=== PATIENT | male | born 1960 | race Caucasian/White ===

== ENCOUNTER 2020-07-26 12:52 | Outpatient (REF) | payer MEDICARE, MEDICAID, SELFPAY ==
[2020-07-26 14:33] LABS: Hematocrit 42.7 % (42-52); Hemoglobin 15.1 g/dl (14.0-18.0); Mean Corpuscular HGB Conc 35.4 g/dl (31.0-36.0); Mean Corpuscular Hemoglobin 33.3 pg (27.0-33.0); Mean Corpuscular Volume 94.1 fL (80-98); Mean Platelet Volume 10.6 fL (9.4-12.4); Platelet Count 148 X10*3/uL (160-400); Red Blood Count 4.54 X10*6/uL (4.60-5.80); Red Cell Distribution Width 11.9 % (11.0-16.0); White Blood Count 4.7 X10*3/uL (4.8-10.8)
[2020-07-26 14:55] LABS: Alanine Aminotransferase 29 U/L (0-40); Albumin Level 4.4 g/dL (3.5-5.0); Alkaline Phosphatase 109 U/L (39-117); Anion Gap 12 (12-20); Aspartate Amino Transferase 34 U/L (5-37); Bilirubin Direct 0.2 mg/dL (0.0-0.5); Bilirubin Total 0.6 mg/dL (0.0-1.0); Blood Urea Nitrogen 13 mg/dL (9-16); Calcium 8.6 mg/dL (8.4-10.2); Carbon Dioxide 24 mmol/L (22-29); Chloride 106 mmol/L (96-108); Cholesterol 131 mg/dL; Estimated Glomerular Filt Rate > 60; Glucose Fasting 96 mg/dL (60-99); HDL Cholesterol 39 mg/dL; LDL Cholesterol Calculated 77 mg/dl; Magnesium 2.2 mg/dL (1.6-2.6); Sodium 138 mmol/L (135-145); Total Protein 6.5 g/dL (6.5-8.0); Triglycerides 76 mg/dL
[2020-07-26 15:18] LABS: TSH reflex Free T4 1.15 uIU/mL (0.32-4.0)
== END 2020-07-26 12:53 | disposition home or self-care (01) ==
LOC: HO.WFDLDS 12:52
PROVIDERS: Visit Provider Hospitalist
DX: Z00.00 Encounter for general adult medical examination without abnormal findings (principal); M62.838 Other muscle spasm
CPT/HCPCS: 36415; 80048; 80061; 80076; 83735; 84443; 85027

== ENCOUNTER → 2020-10-04 13:34 | Outpatient (BNVA) | payer MEDICARE, MEDICAID, SELFPAY | PROVIDERS: PCP Hospitalist; Referring Provider Hospitalist; Visit Provider Nurse Practitioner | DX: K59.00 Constipation, unspecified (principal); R14.0 Abdominal distension (gaseous) | CPT/HCPCS: 99202 ==

== ENCOUNTER → 2020-12-20 14:11 | Outpatient (BNVA) | payer MEDICARE, MEDICAID, SELFPAY | PROVIDERS: PCP Family Medicine; Visit Provider Nurse Practitioner | DX: K59.00 Constipation, unspecified (principal); R14.0 Abdominal distension (gaseous) | CPT/HCPCS: Q3014 ==

== ENCOUNTER 2021-01-30 19:04 | Emergency (ER) | payer MEDICARE, MEDICAID, SELFPAY ==
[2021-01-30 20:08] VITALS: BP 128/75; PULSE 68; RESP 18; TEMP 36.6; O2SAT 98; BMI 24.7
[2021-01-30 20:22] LABS: Appearance Urine CLEAR; Color Urine STRAW; Glucose Urine UA NEG (NEG); Leukocyte Esterase Urine NEG (NEG); Nitrite Urine NEG (NEG); Specific Gravity - Urine <= 1.005 (1.005-1.025); Urine Blood NEG (NEG); Urine Ketones NEG (NEG); Urine Protein NEG (NEG-TRACE)
[2021-01-30 21:28] LABS: MANUAL DIFF FLAG NO
[2021-01-30 21:30] LABS: Basophils Percent Auto 0.3 % (0-2); Eosinophils Absolute Auto 0.1 X10*3/uL (0.0-0.4); Eosinophils Percent Auto 1.6 % (0-4); Hemoglobin 14.7 g/dl (14.0-18.0); Imm Gran Abs Auto 0.01 X10*3/uL (0.00-0.03); Imm Gran Pct Auto 0.2 % (0.0-0.4); Lymphocytes Percent Auto 32.5 % (20-40); Mean Corpuscular Hemoglobin 33.5 pg (27.0-33.0); Mean Corpuscular Volume 95.7 fL (80-98); Mean Platelet Volume 10.2 fL (9.4-12.4); Monocytes Absolute Auto 0.6 X10*3/uL (0.1-1.2); Neutrophils Absolute Auto 3.4 X10*3/uL (2.0-8.3); Neutrophils Percent Auto 56.4 % (45-73); Platelet Count 157 X10*3/uL (160-400); Red Blood Count 4.39 X10*6/uL (4.60-5.80); Red Cell Distribution Width 12.4 % (11.0-16.0); White Blood Count 6.1 X10*3/uL (4.8-10.8)
[2021-01-30 21:46] LABS: Anion Gap 13 (12-20); Blood Urea Nitrogen 16 mg/dL (9-16); Calcium 9.5 mg/dL (8.4-10.2); Carbon Dioxide 25 mmol/L (22-29); Chloride 106 mmol/L (96-108); Creatinine Clr Calc Pharmacy 91.8; Estimated Glomerular Filt Rate > 60; Glucose Random 97 mg/dL (60-115); Potassium 4.3 mmol/L (3.3-5.1); Sodium 140 mmol/L (135-145)
[2021-01-30 22:06] VITALS: BP 129/79; PULSE 60; RESP 14; O2SAT 97
--- NOTE | 2021-01-30 22:24 | ED_ITS ---
HPI - General Adult General Chief complaint: Headache Stated complaint: Multiple complaints Time Seen by Provider: 01/30/21 22:23 Source: patient Mode of arrival: ambulatory Limitations: no limitations History of Present Illness HPI narrative: patient with both abdominal discomfort with belching and flatulance and headache. He is anxious that he has been poisoned by his coffee cup and bad M&M peanuts. He has occaisonal diarrhea. Patient is concerned that he is dying from being poisoned and wants to be checked out. Concerned that radioactive waves in his cell phone is affecting his brain. Onset (ago): year(s) Radiation: non-radiation Severity: mild Pain Consistency: intermittent Associated symptoms: denies other symptoms Related Data Home Medications Medication Instructions Recorded Confirmed aspirin 81 mg tablet,delayed 81 mg PO DAILY 07/16/20 01/21/21 release Previous Rx's Medication Instructions Recorded betamethasone valerate 0.1 % 1 appl TOPICAL BID PRN #45 g 09/27/20 topical cream atorvastatin 80 mg tablet 80 mg PO DAILY #90 tab 01/03/21 sulfamethoxazole 800 1 tab PO Q12H 5 Days #10 tab 01/21/21 mg-trimethoprim 160 mg tablet (Bactrim DS) Allergies Allergy/AdvReac Type Severity Reaction Status Date / Time Penicillins [PCN] Allergy Severe HIVES Verified 01/21/21 10:50 nutmeg oil (Myristica seed Allergy Intermediate hives Verified 01/21/21 10:50 oil) perfume Allergy Mild Unknown Verified 01/21/21 10:50 barley Allergy Intermediate rash, hives Uncoded 12/20/20 14:12 food dyes Allergy Intermediate rash, blue Uncoded 12/20/20 14:12 dyes on meds, drinks Review of Systems Constitutional: Constitutional: Reports no additional constitutional complaints Eyes: Eyes: Reports no additional eye complaints ENT: Denies dizziness Cardiovascular: Cardiovascular: Reports no additional cardiovascular complaints Respiratory: Respiratory: Reports as per HPI Gastrointestinal: Gastrointestinal: Reports no additional gastrointestinal complaints Musculoskeletal: Musculoskeletal: Reports no additional musculoskeletal complaints Integumentary/Breasts: Skin/Breast: Denies rash Neurologic: Reports system reviewed and no additional complaints, except as documented, Denies dizziness and Denies Sensory deficit (Neuro) Psychiatric: Psychiatric: Denies anxiety PMFSH Past Medical History Medical History Abdominal aneurysm, ruptured Broken back Spinal stenosis at L4-L5 level Surgical History History of esophagogastroduodenoscopy (EGD) Hx of colonoscopy Stented coronary artery Social History Social History Housing: Apartment Alcohol intake: former Patient Tobacco Use Status: Never used Tobacco Advance Directives: No Advance Directives Information Provided: No Current occupational status: retired Physical Exam Vital Signs: Vital Signs: Last Vital Signs Temp 98 F 01/30/21 20:08 Pulse 60 01/30/21 22:06 Resp 14 01/30/21 22:06 BP 129/79 01/30/21 22:06 Pulse Ox 97 01/30/21 22:06 Body Mass Index 24.7 Const: General: healthy appearing Nutritional Appearance: average body habitus Orientation/consciousness: oriented to person and patient oriented x3 Limitations: no limitations HENMT: Head: Yes normal to inspection Ears: external ears normal General nose exam: Normal external nose present Mouth: Normal oral and palatal mucosa present and oropharynx normal Throat: Yes posterior oropharynx normal Eyes: General: appearance normal, both eyes and all related structures Neck: Other: supple Neck: Yes normal visual inspection Chest: Chest palpation & inspection: normal inspection of the chest Resp: Auscultation: clear to auscultation bilaterally Cardio: Jugular venous distension: no JVD Rate: regular rate Rhythm: regular rhythm Heart sounds: S1 normal heart sound present and S2 normal heart sound present GI: Inspection: Yes normal to inspection Palpation (GI): Soft to palpation, nontender and No hepatosplenomegaly present Auscultation: normal bowel sounds : General: Yes no CVA tenderness Back/Spine/Pelvis: Back: no CVA tenderness Skin: General skin exam: no rashes or lesions noted Neuro: General: oriented to person and patient oriented x3 Cranial nerves: Yes CN's II-XII intact bilaterally Motor exam (neuro): 5/5 motor strength present throughout Sensory Exam: No Sensory deficit (Neuro) Extrem: General: Yes normal to inspection Psych: Appearance: grossly normal Course Reevaluation(s) Reevaluation #1: no evidence of poisoning or any end organ injury will dc home Time: 22:31 Medical Decision Making Lab Data Result diagrams: 01/30/21 21:23 01/30/21 21:23 Labs: Lab Results 01/30/21 01/30/21 01/30/21 Range/Units 20:16 21:23 21:23 WBC 6.1 (4.8-10.8) X10*3/uL RBC 4.39 L (4.60-5.80) X10*6/uL Hgb 14.7 (14.0-18.0) g/dl Hct 42.0 (42-52) % MCV 95.7 (80-98) fL MCH 33.5 H (27.0-33.0) pg MCHC 35.0 (31.0-36.0) g/dl RDW 12.4 (11.0-16.0) % Plt Count 157 L (160-400) X10*3/uL MPV 10.2 (9.4-12.4) fL Immature Gran % (Auto) 0.2 (0.0-0.4) % Neut % (Auto) 56.4 (45-73) % Lymph % (Auto) 32.5 (20-40) % Tyrrell % (Auto) 9.0 (2-11) % Eos % (Auto) 1.6 (0-4) % Baso % (Auto) 0.3 (0-2) % Lymph # (Auto) 2.0 (1.2-4.9) X10*3/uL Tyrrell # (Auto) 0.6 (0.1-1.2) X10*3/uL Eos # (Auto) 0.1 (0.0-0.4) X10*3/uL Baso # (Auto) 0.0 (0.0-0.2) X10*3/uL Abs Immat Gran (auto) 0.01 (0.00-0.03) X10*3/uL Absolute Neuts (auto) 3.4 (2.0-8.3) X10*3/uL Absolute Nucleated RBC 0.000 (0.0-0.012) X10*3/uL Nucleated RBC % (auto) 0.0 (0.0-0.2) /100WBC Sodium 140 (135-145) mmol/L Potassium 4.3 (3.3-5.1) mmol/L Chloride 106 (96-108) mmol/L Carbon Dioxide 25 (22-29) mmol/L Anion Gap 13 (12-20) BUN 16 (9-16) mg/dL Creatinine 0.95 (0.5-1.4) mg/dL Estim Creat Clear Calc 91.8 Estimated GFR > 60 Random Glucose 97 (60-115) mg/dL Calcium 9.5 D (8.4-10.2) mg/dL Urine Color STRAW Urine Appearance CLEAR Urine pH 6.0 (5.0-8.0) Ur Specific [place] <= 1.005 (1.005-1.025) Urine Protein NEG (NEG-TRACE) MG/DL Urine Glucose (UA) NEG (NEG) MG/DL Urine Ketones NEG (NEG) MG/DL Urine Blood NEG (NEG) Urine Nitrite NEG (NEG) Ur Leukocyte Esterase NEG (NEG) Discharge Plan Discharge Clinical Impression: Observation and evaluation for suspected conditions not found Patient Disposition: Home, Self-Care Additional Instructions: Throw out coffee cup, drink plenty of fluids Prescriptions: No Action betamethasone valerate 0.1 % cream 1 appl topical BID PRN (Reason: skin irritation) Qty: 45 RF: 0 atorvastatin 80 mg tablet 80 mg PO DAILY Qty: 90 RF: 0 aspirin 81 mg tablet,delayed release (DR/EC) 81 mg PO DAILY RF: 0 sulfamethoxazole-trimethoprim [Bactrim DS] 800-160 mg tablet 1 tab PO Q12H 5 Days Qty: 10 RF: 0 Referrals: April Jarrell, [employer]PECTOR [Primary Care Provider] - 1 week
== END 2021-01-30 22:46 | disposition home or self-care (01) ==
PROVIDERS: Emergency Provider Emergency Medicine; PCP Hospitalist
DX: R51.9 Headache, unspecified (principal); R10.9 Unspecified abdominal pain; Z79.899 Other long term (current) drug therapy; Z87.891 Personal history of nicotine dependence
CPT/HCPCS: 36415; 80048; 81003; 85025; 99283

== ENCOUNTER 2021-06-24 14:00 | Outpatient (RCR) | payer MEDICARE, MEDICAID, SELFPAY ==
--- NOTE | 2021-04-28 08:30 | MHC.PT.EP ---
[facility] [place] Office [place] [facility] [place] Office [address] Bhavna Carney [address] [phone] F: [phone] F: [phone] F: [phone] F: [phone] Physical Therapy Plan of Care Date of Evaluation: Date of Surgery: Diagnosis: PT eval and treat; M54.12 Radiculopathy Cervical Region script Dr. Luis Enrique Bazzi signed on 04/16/21 Assessment: Pt is a RHD 60 y/o male with PMH significant for cardiac stenting, abdominal aneurysm, ruptured spinal stenosis at L4-L5 level, history of esophagogastroduodenoscopy (EGD)Hx of colonoscopy who was referred to PT for treatment of L cervical radiculopathy onset of sx which began approximately five weeks ago following a walkin in appt referred to PT by Dr. Bazzi. Pt presents with signs and sx consistent with cervical radiculopathy impacting L periscap, L elbow, hand, and L constant, wrist numbness/tingling. Pt presents with noted mental health concerns, noted to exhibit agitation and perseverance on previous past medical history and childhood experiences. He was able to be redirected and calmed when presented with encouragement to complete deep breathing in effort to relax and redirect his attention, however he did demonstrate physical outburst when expressing his history and used language which was violent and inappropriate. He presents to office carrying Bio-freeze patch expressing positive response to use inquiring help with application. He was advised to save this patch for a later date as he was treated with use of topical Bio-freeze application in the clinic expressing (+) response. He was educated regarding application/safety/use and given sample to take for home use. Pt was initiated in trial of gentle cervical manual traction with some short centralization verbalized from height of hand with initial trial. He was also guided through passive, relaxed pendulums, initiated in scapular retraction with arms by side, and encouraged to perform periodic deep breathing in effort to calm himself. He would be best served in therapy of a proposed attendance of 2x/week x 4 weeks however pt expressing food insecurities (mentions actively in co-op program with delivery from pantry) causing him additional stress and lack of self transportation (reliant on PT-[facility] for transport to and from appointments). Pt was educated re: goals of treatment, findings of evaluation, and indications for treatment. Therapist wants to ensure referring provider and PCP are aware of mental health concern, when patient was briefly speaking to PT he stated I have OCD and I work myself up but then later states he has never received any formal diagnosis or treatments for such. He would benefit from screening for mental health support/treatment. 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 He demonstrated limited formal evaluation in regards to ROM/strength specifics and was initiated in treatment ronit in effort to calm his agitation levels. Frequency and Duration: The patient will be seen 1-2x/week Short Term Goals: 1. Centralize L UE to height of sx L shoulder. 2. Reduce L UE sx to height of shoulder. 3. Initiate self management task lift for HEP instruction. 4. Demonstrate proper carryover, use application, and safety with use of Biofreeze. Record Pressman Goals: 1. I HEP. 2. Centralize presence of L UE sx to height of C/S. 3. Strength L UE grossly all planes to resemble uninvolved extremity. Treatment Plan: Modalities to reduce pain, spasms and effusion. Manual therapy to restore motion and function. Therapeutic exercise to improve strength and flexibility. Neuromuscular re-education for posture and balance. Therapeutic activities to return to functional activities of daily living. Electronically signed by: Merna Hsu, PT, DPT Please sign and return to therapist. Thank you for your referral.
== END 2021-11-21 13:44 | disposition home or self-care (01) ==
LOC: HO.PTWFD 14:00
PROVIDERS: PCP Hospitalist; Visit Provider Family Medicine
DX: M54.12 Radiculopathy, cervical region (principal)
CPT/HCPCS: 97012; 97110; 97140; 97163; 97535

== ENCOUNTER → 2022-02-12 14:55 | Outpatient (BNVA) | payer MEDICARE, SELFPAY | PROVIDERS: PCP Internal Medicine; Visit Provider Internal Medicine Gastroenterology | DX: K59.00 Constipation, unspecified (principal); R14.0 Abdominal distension (gaseous); K57.30 Diverticulosis of large intestine without perforation or abscess without bleeding; K21.9 Gastro-esophageal reflux disease without esophagitis; I71.30 Abdominal aortic aneurysm, ruptured, unspecified; M48.07 Spinal stenosis, lumbosacral region; Z95.5 Presence of coronary angioplasty implant and graft | CPT/HCPCS: 99212 ==

== ENCOUNTER 2022-06-24 16:53 | Emergency (ER) | payer MEDICARE, SELFPAY ==
[2022-06-24 18:19] VITALS: PULSE 63; RESP 18; TEMP 36.6; O2SAT 98; BMI 25.0
--- NOTE | 2022-06-24 18:19 | ED.LOWEXIN ---
HPI - Extremity Injury (Lower) General Chief Complaint: Extremity Injury, Lower Stated Complaint: quest l leg dvt Related Data Home Medications Medication Instructions Recorded Confirmed aspirin 81 mg tablet,delayed 81 mg PO DAILY 07/16/20 02/12/22 release Previous Rx's Medication Instructions Recorded atorvastatin 80 mg tablet 80 mg PO DAILY #90 tabs 07/28/21 clotrimazole-betamethasone 1 1 appl topical BID 2 weeks #15 02/03/22 %-0.05 % topical cream grams polyethylene glycol 3350 17 17 g PO DAILY PRN laxative effect 02/12/22 gram/dose oral powder (Miralax) 60 days #238 grams Allergies Allergy/AdvReac Type Severity Reaction Status Date / Time Penicillins [PCN] Allergy Severe HIVES Verified 02/12/22 15:06 nutmeg oil (Myristica seed Allergy Intermediate hives Verified 02/12/22 15:06 oil) perfume Allergy Mild Unknown Verified 02/12/22 15:06 barley Allergy Intermediate rash, hives Uncoded 02/03/22 13:20 food dyes Allergy Intermediate rash, blue Uncoded 02/03/22 13:20 dyes on meds, drinks PMFSH Past Medical History Medical History Abdominal aneurysm, ruptured Broken back Spinal stenosis at L4-L5 level Surgical History History of esophagogastroduodenoscopy (EGD) Hx of colonoscopy Stented coronary artery Family History Family History Sister Lung cancer Mother Blind Alcoholic Father No problems noted. Social History Social History Housing: Apartment Alcohol intake: current Alcohol intake frequency: holidays/special occasions only Alcohol type: wine Patient Tobacco Use Status: Never used Tobacco e-Cigarette/Vaping Use: Never Used Second Hand Smoke Exposure: Yes Advance Directives: No Advance Directives Information Provided: No service: Yes Current occupational status: retired Cognitive needs: No Hearing needs: No Vision needs: No Physical Exam Vital Signs: Vital Signs: Last Vital Signs Temp 98 F 06/24/22 18:19 Pulse 63 06/24/22 18:19 Resp 18 06/24/22 18:19 Pulse Ox 98 06/24/22 18:19 BMI result Body Mass Index 25.0 Course Course Course Narrative: This is an RME: Additional HPI, ROS, PE not included below will be deferred to primary provider. Patient is a 61-year-old woman presents to the emergency department for evaluation of left lower extremity concern. Patient reports long haul symptoms from COVID-19. States last week into the weekend, reports that the left ankle and left foot was bruised diffusely, this was atraumatic. He reports that he also had spots of bruising just inferior to the ankle. This overall resolved over the past few days. However, he has a lump that he is able to palpate to the distal medial lower leg just above the ankle, and this area is tender. He contacted his primary care office, and they advised him to come to the emergency department to rule out DVT. Denies fevers, chills, chest pain, shortness of breath, dizziness, numbness or tingling. PE: 2+ DP/PT pulse bilaterally, no erythema, swelling, calf tenderness. No respiratory distress, no tachypnea, hypoxia, or tachycardia. Plan: D-dimer to evaluate for DVT Medical Decision Making Lab Data Labs: Lab Results 06/24/22 Range/Units 18:54 D-Dimer High Sensitivty 162 NG/ML Discharge Plan Discharge Clinical Impression: Acute leg pain Patient Disposition: Elopement Prescriptions: No Action atorvastatin 80 mg tablet 80 mg PO DAILY Qty: 90 3RF aspirin 81 mg tablet,delayed release (DR/EC) 81 mg PO DAILY clotrimazole-betamethasone 1-0.05 % cream 1 appl topical BID 14 Days Qty: 15 1RF polyethylene glycol 3350 [Miralax] 17 gram/dose powder 17 g PO DAILY PRN (Reason: laxative effect) 60 Days Qty: 238 3RF Interventions: ED Discharge Assessment Last Done: 06/24/22 20:37 Discharge Date/Time: 06/24/22 20:54
[2022-06-24 19:08] LABS: D Dimer High Sensitivity 162 NG/ML
== END 2022-06-24 20:54 | disposition left against medical advice (07) ==
PROVIDERS: Student in an Organized Health Care Education/Training Program; Emergency Provider Emergency Medicine; PCP Internal Medicine
DX: M79.662 Pain in left lower leg (principal); Z95.5 Presence of coronary angioplasty implant and graft; Z87.820 Personal history of traumatic brain injury
CPT/HCPCS: 36415; 85379; 99282; 99283

== ENCOUNTER 2022-09-25 11:01 | Outpatient (REF) | payer MEDICARE, SELFPAY ==
[2022-09-25 12:57] LABS: Alanine Aminotransferase 30 U/L (0-40); Albumin Level 4.9 g/dL (3.5-5.0); Alkaline Phosphatase 101 U/L (39-117); Anion Gap 13 (12-20); Aspartate Amino Transferase 42 U/L (5-37); Bilirubin Total 1.1 mg/dL (0.0-1.0); Blood Urea Nitrogen 16 mg/dL (9-16); Calcium 9.7 mg/dL (8.4-10.2); Carbon Dioxide 26 mmol/L (22-29); Chloride 107 mmol/L (96-108); Cholesterol 139 mg/dL; Estimated Glomerular Filt Rate > 60; Glucose Fasting 90 mg/dL (60-99); Glucose Random 89 mg/dL (60-115); HDL Cholesterol 43 mg/dL; LDL Cholesterol Calculated 77 mg/dl; Magnesium 2.2 mg/dL (1.6-2.6); Potassium 4.5 mmol/L (3.3-5.1); Sodium 141 mmol/L (135-145); Total Protein 6.9 g/dL (6.5-8.0); Triglycerides 96 mg/dL
[2022-09-25 13:28] LABS: Folate 16.4 ng/mL (> or = 4.0); Vitamin B12 683 pg/mL (200-900); Vitamin D 25-OH Total 42.6 ng/mL (>30)
== END 2022-09-25 11:02 | disposition home or self-care (01) ==
LOC: HO.LAB 11:01
PROVIDERS: PCP Internal Medicine; Visit Provider Nurse Practitioner Family
DX: Z13.21 Encounter for screening for nutritional disorder (principal); M62.838 Other muscle spasm; E78.5 Hyperlipidemia, unspecified; Z95.5 Presence of coronary angioplasty implant and graft; E55.9 Vitamin D deficiency, unspecified
CPT/HCPCS: 36415; 80053; 80061; 82306; 82607; 82746; 83735; 84100

== ENCOUNTER → 2022-10-22 13:53 | Outpatient (BNVA) | payer MEDICARE, SELFPAY | PROVIDERS: PCP Internal Medicine; Visit Provider Internal Medicine Gastroenterology | DX: K57.30 Diverticulosis of large intestine without perforation or abscess without bleeding (principal); K21.9 Gastro-esophageal reflux disease without esophagitis; K59.00 Constipation, unspecified; R14.0 Abdominal distension (gaseous); R10.32 Left lower quadrant pain | CPT/HCPCS: 99212 ==

== ENCOUNTER 2023-04-14 09:59 | Outpatient (AMB) | payer MEDICARE, SELFPAY ==
[2023-04-14 10:03] VITALS: BP 120/70; PULSE 64; O2SAT 99; BMI 26.9
--- NOTE | 2023-04-14 10:03 | A.OFFPC_ITS ---
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 Accompanied by: Self / Same As Patient Allergies Penicillins [PCN] Allergy (Severe, Verified 04/14/23 10:31) HIVES nutmeg oil (Myristica seed oil) Allergy (Intermediate, Verified 04/14/23 10:31) hives perfume Allergy (Mild, Verified 04/14/23 10:31) Unknown barley Allergy (Intermediate, Uncoded 04/14/23 10:04) rash, hives food dyes Allergy (Intermediate, Uncoded 04/14/23 10:04) rash, blue dyes on meds, drinks Medication List - Last Reconciled 04/14/23 by Jose Alfredo Rao PA-C aspirin 81 mg PO DAILY atorvastatin 80 mg PO DAILY cyclobenzaprine 10 mg PO BEDTIME PRN 10 days polyethylene glycol 3350 (Miralax) 17 grams PO DAILY PRN 60 days psyllium husk (Fiber (psyllium husk)) 0.52 grams PO BID PRN 60 days Tobacco use date assessed: 09/01/22 Dental Screening Dental Screen Date: 04/14/23 Did you have a dental visit in the last 12 months?: No Did you have a dental problem in the last 6 months where you did not have access to dental care?: No Was dental information given to patient?: Yes HPI possible sinusitis HPI Details Patient is a 62-year-old male here today for problem visit. This is the 1st time I am meeting this 62-year-old male with a past medical history significant for hyperlipidemia, GERD and coronary artery disease. He reports last week having a stuffy nose and blowing his nose and noted greenish brownish sputum. This has resolved with conservative treatment. He is interested in starting in nasal spray for his sinusitis. [facility] Medical History Abdominal aneurysm, ruptured Spinal stenosis at L4-L5 level Broken back Surgical History History of esophagogastroduodenoscopy (EGD) Hx of colonoscopy Stented coronary artery Family History Sister Lung cancer Mother Blind Alcoholic Father No problems noted. Social History Housing: Apartment Alcohol intake: current Alcohol intake frequency: holidays/special occasions only Alcohol type: wine Patient Tobacco Use Status: Never used Tobacco e-Cigarette/Vaping Use: Never Used Second Hand Smoke Exposure: Yes service: Yes Current occupational status: retired Cognitive needs: No Hearing needs: No Vision needs: No Questionnaire Thrive Questionnaire Date Thrive assessed: 09/01/22 DOREEN-7 AMB Questionnaire DOREEN-7 Date DOREEN - 7 assessed: 09/25/22 Source: Developed by Drs. Olman Jama, Theresa Reyes, José Luis Cottrell and colleagues, with an educational ciro from [employer]. Review of Systems Const Denies headache(s) Eyes Denies loss of vision ENT Denies vertigo, Denies dizziness, Denies headache(s) and Denies sore throat Card Denies chest pain, Denies leg edema and Denies lightheadedness Resp Denies cough, Denies hemoptysis and Denies wheezing GI Denies abdominal pain, Denies melena, Denies constipation, Denies diarrhea and Denies vomiting Denies dysuria, Denies urinary frequency and Denies urinary urgency Musc Denies arthralgias, Denies joint swelling, Denies numbness and Denies tingling Neuro Denies Abnormal speech present, Denies behavioral changes, Denies vertigo, Denies dizziness, Denies headache(s), Denies loss of vision, Denies memory loss, Denies numbness and Denies tingling Psych Denies anxiety, Denies behavioral changes, Denies depression, Denies memory loss and Denies panic attacks Get/Lymph Denies easy bleeding and Denies easy bruising Aller/Immun Denies wheezing Physical exam (Primary Care) Vital Signs: Last Vital Signs Pulse 64 04/14/23 10:03 BP 120/70 04/14/23 10:03 Pulse Ox 99 04/14/23 10:03 Oxygen Delivery Method Room Air 04/14/23 10:03 BMI result Body Mass Index 26.9 Tobacco/Smoking Status: Tobacco use Status Tobacco use date assessed 09/01/22 04/14/23 10:04 Patient Tobacco Use Status Never used Tobacco 04/14/23 10:04 e-Cigarette/Vaping Use Never Used 04/14/23 10:04 Thrive Assessment: Date of Thrive Assessment Date Thrive assessed 09/01/22 04/14/23 10:04 Const General: healthy appearing, no acute distress, alert and awake Nutritional Appearance: well nourished Orientation/consciousness: oriented to person, oriented to place and oriented to time HENMT Ears: TM's normal bilaterally General nose exam: Normal nasal mucous membranes and turbinates present Eyes Conjunctivae: conjunctivae normal Sclerae: sclerae normal Pupils: Equal, round and reactive pupils present Neck Neck: Yes no lymphadenopathy and Yes no JVD Thyroid: Thyroid normal Carotids: no bruits Resp Effort & Inspection: normal respiratory effort and not tachypneic Auscultation: no crackles, no rales, no rhonchi and no wheezes Cardio Rate: regular rate Rhythm: regular rhythm Heart sounds: no murmurs and normal S1 and S2 GI Palpation (GI): Soft to palpation, nontender, no hepatomegaly and no splenomegaly Auscultation: normal bowel sounds Skin General skin exam: no rashes or lesions noted and dry skin Neuro General: oriented to person, oriented to place and oriented to time Cranial nerves: Yes Equal, round and reactive pupils present Speech: No Abnormal speech present Gait exam (Neuro): Normal gait present Motor exam (neuro): no tremor noted Extrem Right upper extremity: full ROM Left upper extremity: full ROM Right lower extremity: full ROM; no edema Left lower extremity: full ROM; no edema Psych Mental Status: mental status grossly normal Speech and movement: Normal speech and movement present Affect: normal affect Attitude: cooperative Thought process: Normal thought process present Assessment and Plan Assessment & Plan (1) Sinusitis: Code(s): J32.9 - Chronic sinusitis, unspecified Qualifiers: Chronicity: subacute Sinusitis location: frontal Qualified Code(s): J01.10 - Acute frontal sinusitis, unspecified Plan: Will supply patient with Flonase nasal spray for his signs and symptoms of rhinitis and sinusitis. Medications: New fluticasone propionate 50 mcg/actuation administer into each nostril 1 spray intranasal BID 30 days 16 grams 1RF J01.10 - Acute frontal sinusitis, unspecified Coding Level of Care Code Est Pt Level 3 (38677) Diagnoses Subacute frontal sinusitis J01.10 Chronicity: subacute Sinusitis location: frontal
== END 2023-04-14 10:50 | disposition home or self-care (01) ==
PROVIDERS: PCP Internal Medicine; Visit Provider Physician Assistant
DX: J01.10 Acute frontal sinusitis, unspecified (principal)
CPT/HCPCS: 99213

== ENCOUNTER 2023-06-22 15:04 | Outpatient (AMB) | payer MEDICARE, SELFPAY ==
--- NOTE | 2023-06-22 15:12 | MHC.PC.OV ---
Vital Signs 06/22/23 15:19 Height 6 ft Weight 201 lb BMI 27.3 BP 122/80 Blood Pressure Location Lt brachial Position Sitting Intake Visit Reasons: Annual exam Intake Note: Patient here for a physical exam Car Icer Required: No Accompanied by: Self / Same As Patient Allergies Penicillins [PCN] Allergy (Severe, Verified 06/22/23 15:43) HIVES nutmeg oil (Myristica seed oil) Allergy (Intermediate, Verified 06/22/23 15:43) hives perfume Allergy (Mild, Verified 06/22/23 15:43) Unknown barley Allergy (Intermediate, Uncoded 06/22/23 15:43) rash, hives food dyes Allergy (Intermediate, Uncoded 06/22/23 15:43) rash, blue dyes on meds, drinks Medication List - Last Reconciled 06/22/23 by Claudia Carpenter MD aspirin 81 mg PO DAILY atorvastatin 80 mg PO DAILY clotrimazole 1% 1 appl topical BID 4 weeks fluticasone propionate 50 mcg/actuation 1 spray intranasal BID 30 days peg 400-propylene glycol (PF) 0.4-0.3 % (Systane Hydration (PF)) 1 drp ophthalmic (eye) BID-QID PRN 30 days polyethylene glycol 3350 (Miralax) 17 grams PO DAILY PRN 60 days psyllium husk (Fiber (psyllium husk)) 0.52 grams PO BID PRN 60 days Tobacco use date assessed: 06/22/23 Dental Screening Dental Screen Date: 06/22/23 Did you have a dental visit in the last 12 months?: No Did you have a dental problem in the last 6 months where you did not have access to dental care?: No Was dental information given to patient?: Yes HPI HPI Comments History of Present Illness Details This is a 62-year-old male that comes for his physical exam. Had Cologuard in 2021 that was negative. Next Cologuard should be 2024. No chest pain or shortness of breath. [facility] Medical History (Updated 06/22/23 @ 15:55 by Claudia Carpenter MD) Traumatic brain injury Abdominal aneurysm, ruptured Spinal stenosis at L4-L5 level Broken back Surgical History History of esophagogastroduodenoscopy (EGD) Hx of colonoscopy Stented coronary artery Family History Sister Lung cancer Mother Blind Alcoholic Father No problems noted. Social History Housing: Apartment Alcohol intake: current Alcohol intake frequency: holidays/special occasions only Alcohol type: wine Patient Tobacco Use Status: Never used Tobacco e-Cigarette/Vaping Use: Never Used Second Hand Smoke Exposure: Yes service: Yes Current occupational status: retired Cognitive needs: No Hearing needs: No Vision needs: No Questionnaire PHQ-9 Over the last 2 weeks, how often have you been bothered by any of the following problems? 1. Little interest or pleasure in doing things: not at all 2. Feeling down, depressed, or hopeless: several days 3. Trouble falling or staying asleep, or sleeping too much: not at all 4. Feeling tired or having little energy: not at all 5. Poor appetite or overeating: not at all 6. Feeling bad about yourself - or that you are a failure or have let yourself or your family down: not at all 7. Trouble concentrating on things, such as reading the newspaper or watching television: not at all 8. Moving or speaking so slowly that other people could have noticed. Or the opposite - being so fidgety or restless that you have been moving around a lot more than usual: not at all 9. Thoughts that you would be better off or of hurting yourself in some way: not at all Total score: 1 Depression Screening Interpretation: Negative Depression Screening Done: Yes 78005 - PHQ-9 Billing: Yes Source: Developed by Drs. Olman Jama, Theresa Reyes, José Luis Cottrell and colleagues, with an educational ciro from [employer]. Thrive Questionnaire Date Thrive assessed: 06/22/23 I am a: Patient What is your living situation today?: I have a steady place to live Within the past 12 months, did the food you bought not last and you didn't have the money to get more?: Never true Within the past 12 months, did you worry whether your food would run out before you got money to buy more?: Never true Do you have trouble paying for medicines?: No Do you have trouble getting transportation to medical appointments?: No Do you have trouble paying your heating and electricity bill?: No Do you have trouble taking care of your child, family member or friend?: No Do you have trouble with day-to-day activities such as bathing, preparing meals, shopping, managing finances, etc.?: No Are you currently unemployed and looking for a job?: No Are you interested in more education?: No Please select the resources that you would like help with: None Currently or been in a relationship where the following occur: no concerns reported THRIVE Score: 0 AUDIT C Alcohol Use Questionnaire (AUDIT-C) 1. How often do you have a drink containing alcohol?: Never Total Score: 0 DOREEN-7 AMB Questionnaire DOREEN-7 Date DOREEN - 7 assessed: 06/22/23 Feeling nervous, anxious, or on edge: 1 = Several days Not being able to stop or control worryin = Not at all Worrying too much about different things: 0 = Not at all Trouble relaxin = Not at all Being so restless that it is hard to sit still: 0 = Not at all Becoming easily annoyed or irritable: 0 = Not at all Feeling afraid as if something awful might happen: 0 = Not at all Total DOREEN-7 score (0-4 normal; 5-9 mild; 10-14 moderate; 15-21 severe): 1 Source: Developed by Drs. Olman Jama, Theresa Reyes, José Luis Cottrell and colleagues, with an educational ciro from [employer]. DOREEN-7 Assessment Billing DOREEN-7 Assessment Tool: DOREEN-7 Assessment 90890 Review of Systems Const All systems reviewed & are unremarkable except as noted in HPI and below Eyes Reports no additional complaints, Denies change in vision and Denies other visual disturbances Card Denies chest pain at rest, Denies chest pain with activity, Denies edema, Denies irregular heart rhythm, Denies claudication, Denies dyspnea, Denies dyspnea on exertion, Denies orthopnea, Denies paroxysmal nocturnal dyspnea and Denies slow heart rate Resp Denies cough, Denies dyspnea and Denies dyspnea on exertion GI Denies abdominal pain, Denies change in bowel habits, Denies excessive flatus, Denies nausea and Denies vomiting Denies urinary hesitancy, Denies urinary incontinence and Denies urinary urgency Musc Denies abnormal gait, Denies atrophy, Denies deformity and Denies limited range of motion Skin/Breast Denies bleeding lesions, Denies changing lesions and Denies rash Neuro Denies abnormal gait and Denies lack of coordination Physical exam (Primary Care) Vital Signs: Last Vital Signs BP 122/80 06/22/23 15:19 BMI result Body Mass Index 27.3 Tobacco/Smoking Status: Tobacco use Status Tobacco use date assessed 06/22/23 06/22/23 15:26 Patient Tobacco Use Status Never used Tobacco 06/22/23 15:13 e-Cigarette/Vaping Use Never Used 06/22/23 15:13 PHQ-9: PHQ-9 Score PHQ-9: Total score 1 06/22/23 15:26 Depression Screening Interpretation: Negative Thrive Assessment: Date of Thrive Assessment Date Thrive assessed 06/22/23 06/22/23 15:26 Currently or been in a relationship where the following occur: no concerns reported Const Orientation/consciousness: patient oriented x3 HENMT Head: Yes normal to inspection, Yes normocephalic and Yes atraumatic Ears: external ears normal Eyes General: appearance normal, both eyes and all related structures Eyelids: Yes eyelids normal Conjunctivae: conjunctivae normal Neck Neck: Yes normal visual inspection and Yes supple Resp Effort & Inspection: normal respiratory effort Auscultation: clear to auscultation bilaterally Cardio Jugular venous distension: no JVD Rate: regular rate Rhythm: regular rhythm Heart sounds: S1 normal heart sound present and S2 normal heart sound present GI Inspection: Yes normal to inspection Palpation (GI): Soft to palpation and nontender Auscultation: normal bowel sounds Skin General skin exam: no rashes or lesions noted Neuro General: patient oriented x3 and no focal motor deficits Extrem General: Yes full ROM Assessment and Plan Assessment & Plan (1) Physical exam: Code(s): Z00.00 - Encounter for general adult medical examination without abnormal findings Plan: Repeat in a year. Orders: Orders Lipid Panel Today E78.5 - Hyperlipidemia, unspecified Comprehensive [place]. Panel Fast Today Z00.00 - Encounter for general adult medical examination without abnormal findings Medications: Refilled fluticasone propionate 50 mcg/actuation administer into each nostril 1 spray intranasal BID 30 days 16 grams 1RF J01.10 - Acute frontal sinusitis, unspecified clotrimazole 1% 1 appl topical BID 4 weeks 15 grams 1RF Coding Level of Care Code Est Pt Prev Care 40-64y(10781) Diagnoses Physical exam Z00.00 Additional Codes DOREEN-7 Assessment Billing - DOREEN-7 Assessment Tool: DOREEN-7 Assessment 40355 ([id number]) Time Spent (min) 33
[2023-06-22 15:19] VITALS: BP 122/80; BMI 27.3
== END 2023-06-22 15:58 | disposition home or self-care (01) ==
PROVIDERS: Visit Provider Internal Medicine
DX: Z00.00 Encounter for general adult medical examination without abnormal findings (principal)
CPT/HCPCS: 99396

== ENCOUNTER 2023-10-06 15:52 | Outpatient (AMB) | payer MEDICARE, SELFPAY ==
[2023-10-06 15:54] VITALS: BP 120/82; BMI 25.9
--- NOTE | 2023-10-06 15:54 | A.OFFPC_ITS ---
Vital Signs 10/06/23 15:54 Height 6 ft Weight 191 lb BMI 25.9 BP 120/82 Blood Pressure Location Lt brachial Position Sitting Intake Visit Reasons: Left heel swollen Intake Note: Patient here c/o left heel pain Affiliate Marketing Coordinator Required: No Accompanied by: Self / Same As Patient Allergies Penicillins [PCN] Allergy (Severe, Verified 10/06/23 16:10) HIVES nutmeg oil (Myristica seed oil) Allergy (Intermediate, Verified 10/06/23 16:10) hives perfume Allergy (Mild, Verified 10/06/23 16:10) Unknown barley Allergy (Intermediate, Uncoded 10/06/23 16:10) rash, hives food dyes Allergy (Intermediate, Uncoded 10/06/23 16:10) rash, blue dyes on meds, drinks Medication List - Last Reconciled 10/06/23 by Claudia Carpenter MD aspirin 81 mg PO DAILY atorvastatin 80 mg PO DAILY clotrimazole 1% 1 appl topical BID 4 weeks fluticasone propionate 50 mcg/actuation 1 spray intranasal BID 30 days peg 400-propylene glycol (PF) 0.4-0.3 % (Systane Hydration (PF)) 1 drp ophthalmic (eye) BID-QID PRN 30 days polyethylene glycol 3350 (Miralax) 17 grams PO DAILY PRN 60 days psyllium husk (Fiber (psyllium husk)) 0.52 grams PO BID PRN 60 days Tobacco use date assessed: 06/22/23 Dental Screening Dental Screen Date: 06/22/23 HPI HPI Comments History of Present Illness Details This is a 63-year-old male with pure hypercholesterolemia, constipation and onychomycosis that complains of pain in feet more prominent in the heel aggravated by walking that started about 2 months ago. He has history of plantar fascitis in the past. Denies previous trauma. Has full active range of motion and no deformity. Some callus around the heel. Would like to be referred to Podiatry. On statins for elevated cholesterol. Constipation stable with MiraLax as needed. Has onychomycosis and declines terbinafine because it can cause liver injury. [facility] Medical History (Updated 10/06/23 @ 17:59 by Claudia Carpenter MD) Traumatic brain injury Abdominal aneurysm, ruptured Spinal stenosis at L4-L5 level Broken back Surgical History History of esophagogastroduodenoscopy (EGD) Hx of colonoscopy Stented coronary artery Family History Sister Lung cancer Mother Blind Alcoholic Father No problems noted. Social History Housing: Apartment Alcohol intake: current Alcohol intake frequency: holidays/special occasions only Alcohol type: wine Patient Tobacco Use Status: Never used Tobacco e-Cigarette/Vaping Use: Never Used Second Hand Smoke Exposure: Yes service: Yes Current occupational status: retired Cognitive needs: No Hearing needs: No Vision needs: No Questionnaire Thrive Questionnaire Date Thrive assessed: 06/22/23 DOREEN-7 AMB Questionnaire DOREEN-7 Date DOREEN - 7 assessed: 06/22/23 Source: Developed by Drs. Olman Jama, Theresa Reyes, José Luis Cottrell and colleagues, with an educational ciro from [employer]. Review of Systems Const All systems reviewed & are unremarkable except as noted in HPI and below Card Denies chest pain at rest, Denies chest pain with activity, Denies edema, Denies irregular heart rhythm, Denies claudication, Denies dyspnea, Denies dyspnea on exertion, Denies orthopnea, Denies paroxysmal nocturnal dyspnea and Denies slow heart rate Resp Denies cough, Denies dyspnea and Denies dyspnea on exertion Physical exam (Primary Care) Vital Signs: Last Vital Signs BP 120/82 10/06/23 15:54 BMI result Body Mass Index 25.9 Tobacco/Smoking Status: Tobacco use Status Tobacco use date assessed 06/22/23 10/06/23 16:00 Patient Tobacco Use Status Never used Tobacco 10/06/23 16:00 e-Cigarette/Vaping Use Never Used 10/06/23 16:00 Thrive Assessment: Date of Thrive Assessment Date Thrive assessed 06/22/23 10/06/23 16:00 Resp Effort & Inspection: normal respiratory effort Auscultation: clear to auscultation bilaterally Cardio Jugular venous distension: no JVD Rate: regular rate Rhythm: regular rhythm Heart sounds: S1 normal heart sound present and S2 normal heart sound present Extrem General: Yes full ROM Assessment and Plan Assessment & Plan (1) Pain in both feet: Code(s): M79.671 - Pain in right foot; M79.672 - Pain in left foot Plan: Referred to Podiatry. (2) Pure hypercholesterolemia: Code(s): E78.00 - Pure hypercholesterolemia, unspecified Plan: Continue statins. (3) Constipation: Comment: Tries to have a BM daily or every other day by drinking grape or pomegranate juice or hot water. Denies recent diarrhea, black stools. Stools are dark related to diet. Intermittent rectal bleeding from hemorrhoids. Prescribed Miralax for constipation Code(s): K59.00 - Constipation, unspecified Plan: Continue MiraLax as needed. (4) Onychomycosis: Code(s): B35.1 - Tinea unguium Plan: Referred to Podiatry. Orders: Orders XR foot LT 2V Today M79.672 - Pain in left foot XR foot RT 2V Today M79.671 - Pain in right foot Referrals Podiatry Referral M79.671 - Pain in right foot, M79.672 - Pain in left foot Coding Level of Care Code Est Pt Level 4 (27301) Complex EM visit Add On G2211 Diagnoses Pain in both feet M79.671; M79.672 Pure hypercholesterolemia E78.00 Constipation K59.00 Onychomycosis B35.1 Time Spent (min) 22
== END 2023-10-06 16:23 | disposition home or self-care (01) ==
PROVIDERS: PCP Internal Medicine; Visit Provider Internal Medicine
DX: M79.671 Pain in right foot (principal); M79.672 Pain in left foot; E78.00 Pure hypercholesterolemia, unspecified; K59.00 Constipation, unspecified; B35.1 Tinea unguium
CPT/HCPCS: 99214; G2211

== ENCOUNTER 2023-10-13 13:42 | Outpatient (REF) | payer MEDICARE, SELFPAY ==
--- NOTE | ~2023-10-13 | XR_ITS ---
EXAMINATION: XR BILATERAL FEET CLINICAL INFORMATION: Pain in bilateral feet. COMPARISON: None available. TECHNIQUE: 3 views of each foot FINDINGS: RIGHT FOOT: Small plantar and posterior calcaneal spurs. Moderate degenerative changes in the first metatarsophalangeal joint with joint space narrowing and hypertrophic change. Cortical step-off at the medial proximal shaft of the right third toe proximal phalanx could be related to prior trauma and/or degenerative change. Moderate degenerative changes in the right second and third metacarpophalangeal joints. Small cortical defect at the lateral base of the second digit proximal phalanx with small adjacent calcific/ossific density. Small ossific/calcific density lateral to the base of the third toe proximal phalanx. LEFT FOOT: Small dorsal and plantar calcaneal spurs. Moderate degenerative changes in the first metatarsophalangeal joint with joint space narrowing and hypertrophic change. Mild flattening of the second metatarsal head may represent Freiberg's infraction. Mild degenerative changes in the first tarsometatarsal joint. XR/XR foot RT 2V IMPRESSION: 1. Moderate degenerative changes bilateral first metatarsophalangeal joints. 2. Cortical step-off at the medial proximal shaft of the right third toe proximal phalanx could be related to prior trauma and/or degenerative change. 3. Small cortical defect at the lateral base of the right second digit proximal phalanx with small adjacent calcific/ossific density. Small ossific/calcific density lateral to the base of the right third toe proximal phalanx. 4. Mild flattening of the left second metatarsal head may represent Freiberg's infraction. 5. Correlation with clinical exam recommended to determine further management including possible additional imaging.
--- NOTE | ~2023-10-13 | XR_ITS ---
EXAMINATION: XR BILATERAL FEET CLINICAL INFORMATION: Pain in bilateral feet. COMPARISON: None available. TECHNIQUE: 3 views of each foot FINDINGS: RIGHT FOOT: Small plantar and posterior calcaneal spurs. Moderate degenerative changes in the first metatarsophalangeal joint with joint space narrowing and hypertrophic change. Cortical step-off at the medial proximal shaft of the right third toe proximal phalanx could be related to prior trauma and/or degenerative change. Moderate degenerative changes in the right second and third metacarpophalangeal joints. Small cortical defect at the lateral base of the second digit proximal phalanx with small adjacent calcific/ossific density. Small ossific/calcific density lateral to the base of the third toe proximal phalanx. LEFT FOOT: Small dorsal and plantar calcaneal spurs. Moderate degenerative changes in the first metatarsophalangeal joint with joint space narrowing and hypertrophic change. Mild flattening of the second metatarsal head may represent Freiberg's infraction. Mild degenerative changes in the first tarsometatarsal joint. XR/XR foot LT 2V IMPRESSION: 1. Moderate degenerative changes bilateral first metatarsophalangeal joints. 2. Cortical step-off at the medial proximal shaft of the right third toe proximal phalanx could be related to prior trauma and/or degenerative change. 3. Small cortical defect at the lateral base of the right second digit proximal phalanx with small adjacent calcific/ossific density. Small ossific/calcific density lateral to the base of the right third toe proximal phalanx. 4. Mild flattening of the left second metatarsal head may represent Freiberg's infraction. 5. Correlation with clinical exam recommended to determine further management including possible additional imaging.
== END 2023-10-13 13:43 | disposition home or self-care (01) ==
LOC: HO.XRAY 13:42
PROVIDERS: PCP Internal Medicine; Visit Provider Internal Medicine
DX: M79.672 Pain in left foot (principal); M79.671 Pain in right foot
CPT/HCPCS: 73620

== ENCOUNTER 2024-03-09 13:02 | Outpatient (AMB) | payer MEDICARE, SELFPAY ==
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
[2024-03-09 13:18] VITALS: BP 122/75; PULSE 69; BMI 25.2
== END 2024-05-17 13:35 | disposition home or self-care (01) ==
LOC: HO.HGI 13:03
PROVIDERS: PCP Internal Medicine; Visit Provider Internal Medicine Gastroenterology
DX: R10.32 Left lower quadrant pain (principal); K59.00 Constipation, unspecified; K21.9 Gastro-esophageal reflux disease without esophagitis; K57.30 Diverticulosis of large intestine without perforation or abscess without bleeding
CPT/HCPCS: 99499

== ENCOUNTER → 2024-03-09 13:02 | Outpatient (BNVA) | payer MEDICARE, SELFPAY | PROVIDERS: PCP Internal Medicine; Visit Provider Internal Medicine Gastroenterology ==

== ENCOUNTER 2024-03-13 13:08 | Outpatient (AMB) | payer MEDICARE, SELFPAY ==
[2024-03-13 13:19] VITALS: BMI 27.3
--- NOTE | 2024-03-13 13:19 | MHC.AMNUTRGE ---
VS Expanded 03/13/24 13:19 03/13/24 13:28 Height 6 ft 6 ft Weight 201 lb 8.04 oz 202 lb BMI 27.3 27.4 Intake Visit Reasons: Pure hypercholesterolemia/CONFIRMED Allergies Penicillins [PCN] Allergy (Severe, Verified 03/09/24 13:10) HIVES nutmeg oil (Myristica seed oil) Allergy (Intermediate, Verified 03/09/24 13:10) hives perfume Allergy (Mild, Verified 03/09/24 13:10) Unknown barley Allergy (Intermediate, Uncoded 10/06/23 16:10) rash, hives food dyes Allergy (Intermediate, Uncoded 10/06/23 16:10) rash, blue dyes on meds, drinks Nutrition Presentation Details: Pt presents for MNT for hypercholesterolemia Today we will discuss basic low fat and higher fiber sources of foods Pt reports typically making home made meals, eats a variety of foods, reports having cooking skills , 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 BS Monitoring Most Recent Diabetes Results: Cholesterol 139 mg/dL 09/25/22 HDL Cholesterol 43 mg/dL 09/25/22 Triglycerides 96 mg/dL 09/25/22 Creatinine 1.00 mg/dL (0.5-1.4) 09/25/22 Blood Urea Nitrogen 16 mg/dL (9-16) 09/25/22 Sodium 141 mmol/L (135-145) 09/25/22 Potassium 4.5 mmol/L (3.3-5.1) 09/25/22 Chloride 107 mmol/L (96-108) 09/25/22 Carbon Dioxide 26 mmol/L (22-29) 09/25/22 Calcium 9.7 mg/dL (8.4-10.2) 09/25/22 AST 42 U/L (5-37) H 09/25/22 ALT 30 U/L (0-40) 09/25/22 Total Protein 6.9 g/dL (6.5-8.0) 09/25/22 Albumin 4.9 g/dL (3.5-5.0) 09/25/22 GBL-[id number]-Nf.Jeor Equation Height: 6 ft Weight: 202 lb Resting Metabolic Rate: 1758.30 Calculated Activity Level: Moderate Activity Calories Needed to Maintain Weight: 2725.37 Diagnosis Nutrition problem #1: food nutri know defi As related to (etiology) #1: diagnosis As evidenced by (sign/symptom) #1: knowledge deficit of diet COUNT INCLUDES THE [facility] Medical History Traumatic brain injury Abdominal aneurysm, ruptured Spinal stenosis at L4-L5 level Broken back Surgical History History of esophagogastroduodenoscopy (EGD) Hx of colonoscopy Stented coronary artery Family History Sister Lung cancer Mother Blind Alcoholic Father No problems noted. Social History Housing: Apartment Alcohol intake: current Alcohol intake frequency: holidays/special occasions only Alcohol type: wine Patient Tobacco Use Status: Never used Tobacco e-Cigarette/Vaping Use: Never Used Second Hand Smoke Exposure: Yes service: Yes Current occupational status: retired Cognitive needs: No Hearing needs: No Vision needs: No Assessment & Plan Assessment & Plan (1) Pure hypercholesterolemia: Code(s): E78.00 - Pure hypercholesterolemia, unspecified Category: Medical Plan: [id number] ( 04/02 ) Est kcal needs as per MSJ: 2700 (40% carb, 30% protein/fat) Est fluid needs as per 25-30 ml/d:2800 Est prot per day as per 1 g/kg bw: 92 Recommend fiber intake : 8-10 g per day and gradually increase to 25-28 g per day for women and 35-38 g for men or as tolerated Recommend sodium intake per day : less than 1500 mg less than 2000 mg Educated patient on: ( R = reviewed V = verbalizes understanding N/R = needs review N/A = not applicable Food sources of carbohydrate, adequate serving sizes and its role in various health conditions: R V N/R Differences between complex carbohydrates a simple carbohydrates, role of fiber in diet: R Lean protein sources of foods: R V NR Differences between types of fats and role in diet (mono on saturated fat fatty acids, saturated fatty acids, trans fats): R Food sources of sodium in salt and healthy modifications for heart health in kidney health: R V R/V Vitamins and minerals: R V N/R Healthy plate method concept: R Physical activity: Benefits a precaution: R V N/R Patient Instructions: include fish at least twice Continue choosing fiber rich foods (lentils, spinach, green beans carrots, fruits, whole grains Coding Level of Care Code Nutr Indiv Intake (11955) Diagnoses Pure hypercholesterolemia E78.00 Time Spent (min) 30
[2024-03-15 09:56] VITALS: BMI 27.4
== END 2024-03-13 13:50 | disposition home or self-care (01) ==
LOC: HO.ENCR 13:11
PROVIDERS: PCP Internal Medicine; Visit Provider Dietitian, Registered
DX: E78.00 Pure hypercholesterolemia, unspecified (principal)

== ENCOUNTER → 2024-03-13 13:08 | Outpatient (BNVA) | payer MEDICARE, SELFPAY | PROVIDERS: PCP Internal Medicine; Visit Provider Dietitian, Registered | DX: E78.00 Pure hypercholesterolemia, unspecified (principal) | CPT/HCPCS: 97802 ==

== ENCOUNTER → 2024-06-12 14:01 | Outpatient (BNVA) | payer MEDICARE, SELFPAY | PROVIDERS: PCP Internal Medicine; Visit Provider Dietitian, Registered | DX: E78.00 Pure hypercholesterolemia, unspecified (principal) | CPT/HCPCS: 97803 ==

== ENCOUNTER 2024-06-26 14:35 | Outpatient (AMB) | payer MEDICARE, SELFPAY ==
--- NOTE | 2024-06-26 14:38 | A.OFFPC_ITS ---
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 Accompanied by: Self / Same As Patient Allergies Penicillins [PCN] Allergy (Severe, Verified 06/26/24 14:48) HIVES nutmeg oil (Myristica seed oil) Allergy (Intermediate, Verified 06/26/24 14:48) hives perfume Allergy (Mild, Verified 06/26/24 14:48) Unknown barley Allergy (Intermediate, Uncoded 06/26/24 14:48) rash, hives food dyes Allergy (Intermediate, Uncoded 06/26/24 14:48) rash, blue dyes on meds, drinks Medication List - Last Reconciled 06/26/24 by Claudia Carpenter MD aspirin 81 mg PO DAILY atorvastatin 80 mg PO DAILY bisacodyl (Dulcolax (bisacodyl)) 20 mg (4 x 5 mg) PO ONCE 1 day clotrimazole 1% 1 appl topical BID 4 weeks fluticasone propionate 50 mcg/actuation 1 spray intranasal BID 30 days hydrocortisone 1% (Anti-Itch (hydrocortisone)) 1 appl topical TID PRN 2 weeks peg 400-propylene glycol (PF) 0.4-0.3 % (Systane Hydration (PF)) 1 drp ophthalmic (eye) BID-QID PRN 30 days polyethylene glycol 3350 (Miralax) 17 grams PO DAILY PRN 60 days polyethylene glycol 3350 (Miralax) 17 grams PO DAILY 1 day psyllium husk (Fiber (psyllium husk)) 0.52 grams PO BID PRN 60 days Tobacco use date assessed: 06/26/24 Dental Screening Dental Screen Date: 06/26/24 Did you have a dental visit in the last 12 months?: Yes Did you have a dental problem in the last 6 months where you did not have access to dental care?: No Was dental information given to patient?: Patient has dentist HPI HPI Comments History of Present Illness Details This is a 63-year-old male with traumatic brain injury and mild major depression that comes for his physical exam. Has erectile dysfunction and would like sildenafil to be prescribed. I will also refer him to Urology on test for testosterone. No chest pain or shortness on breath. Due to coronary artery disease follow with Cardiology once a year. Able to walk with no assistive device. Mild major depression with low PHQ-9 but declines any medication. [facility] Medical History (Updated 06/26/24 @ 15:07 by Claudia Carpenter MD) Traumatic brain injury Abdominal aneurysm, ruptured Spinal stenosis at L4-L5 level Broken back Surgical History History of esophagogastroduodenoscopy (EGD) Hx of colonoscopy Stented coronary artery Family History Sister Lung cancer Mother Blind Alcoholic Father No problems noted. Social History Housing: Apartment Alcohol intake: current Alcohol intake frequency: holidays/special occasions only Alcohol type: wine Patient Tobacco Use Status: Never used Tobacco e-Cigarette/Vaping Use: Never Used Second Hand Smoke Exposure: Yes service: Yes Current occupational status: retired Cognitive needs: No Hearing needs: No Vision needs: No Questionnaire PHQ-9 Over the last 2 weeks, how often have you been bothered by any of the following problems? 1. Little interest or pleasure in doing things: more than half the days 2. Feeling down, depressed, or hopeless: not at all 3. Trouble falling or staying asleep, or sleeping too much: more than half the days 4. Feeling tired or having little energy: several days 5. Poor appetite or overeating: more than half the days 6. Feeling bad about yourself - or that you are a failure or have let yourself or your family down: not at all 7. Trouble concentrating on things, such as reading the newspaper or watching television: not at all 8. Moving or speaking so slowly that other people could have noticed. Or the opposite - being so fidgety or restless that you have been moving around a lot more than usual: not at all 9. Thoughts that you would be better off or of hurting yourself in some way: not at all Total score: 7 Depression Screening Interpretation: Positive Depression Screening Follow-up: Existing condition and Follow-up Visit Requested Depression Screening Done: Yes 24391 - PHQ-9 Billing: Yes Source: Developed by Drs. Olman Jama, José Luis Hartley and colleagues, with an educational ciro from [employer]. Thrive Questionnaire Date Thrive assessed: 06/26/24 I am a: Patient What is your living situation today?: I have a steady place to live Within the past 12 months, did the food you bought not last and you didn't have the money to get more?: Sometimes True Within the past 12 months, did you worry whether your food would run out before you got money to buy more?: Sometimes True Do you have trouble paying for medicines?: No Do you have trouble getting transportation to medical appointments?: No Do you have trouble paying your heating and electricity bill?: No Do you have trouble taking care of your child, family member or friend?: No Do you have trouble with day-to-day activities such as bathing, preparing meals, shopping, managing finances, etc.?: No Are you currently unemployed and looking for a job?: No Are you interested in more education?: I choose not to answer this question Please select the resources that you would like help with: None Currently or been in a relationship where the following occur: No concerns reported THRIVE Score: 2 AUDIT C Alcohol Use Questionnaire (AUDIT-C) 1. How often do you have a drink containing alcohol?: Never Total Score: 0 Score Reviewed/Action Taken: No DOREEN-7 AMB Questionnaire DOREEN-7 Date DOREEN - 7 assessed: 06/26/24 Feeling nervous, anxious, or on edge: 0 = Not at all Not being able to stop or control worryin = Not at all Worrying too much about different things: 0 = Not at all Trouble relaxin = Not at all Being so restless that it is hard to sit still: 0 = Not at all Becoming easily annoyed or irritable: 0 = Not at all Feeling afraid as if something awful might happen: 0 = Not at all Total DOREEN-7 score (0-4 normal; 5-9 mild; 10-14 moderate; 15-21 severe): 0 Source: Developed by Drs. Olman Jama, José Luis Hartley and colleagues, with an educational ciro from [employer]. DOREEN-7 Assessment Billing DOREEN-7 Assessment Tool: DOREEN-7 Assessment 63919 Review of Systems Const All systems reviewed & are unremarkable except as noted in HPI and below Card Denies chest pain at rest, Denies chest pain with activity, Denies edema, Denies irregular heart rhythm, Denies claudication, Denies dyspnea, Denies dyspnea on exertion, Denies orthopnea, Denies paroxysmal nocturnal dyspnea and Denies slow heart rate Resp Denies cough, Denies dyspnea and Denies dyspnea on exertion GI Denies abdominal pain, Denies change in bowel habits, Denies excessive flatus, Denies nausea and Denies vomiting Denies urinary hesitancy, Denies urinary incontinence and Denies urinary urgency Neuro Denies lack of coordination Physical exam (Primary Care) Vital Signs: Last Vital Signs BP 112/72 06/26/24 14:39 BMI result Body Mass Index 26.7 Tobacco/Smoking Status: Tobacco use Status Tobacco use date assessed 06/22/23 10/06/23 16:00 Patient Tobacco Use Status Never used Tobacco 10/06/23 16:00 e-Cigarette/Vaping Use Never Used 10/06/23 16:00 Depression Screening Interpretation: Positive Depression Screening Follow-up: Existing condition and Follow-up Visit Requested Thrive Assessment: Date of Thrive Assessment Date Thrive assessed 06/22/23 10/06/23 16:00 Currently or been in a relationship where the following occur: No concerns reported [facility] Head: Yes normal to inspection, Yes normocephalic and Yes atraumatic Ears: external ears normal Eyes General: appearance normal, both eyes and all related structures Eyelids: Yes eyelids normal Conjunctivae: conjunctivae normal Neck Neck: Yes normal visual inspection and Yes supple Resp Effort & Inspection: normal respiratory effort Auscultation: clear to auscultation bilaterally Cardio Jugular venous distension: no JVD Rate: regular rate Rhythm: regular rhythm Heart sounds: S1 normal heart sound present and S2 normal heart sound present GI Inspection: Yes normal to inspection Palpation (GI): Soft to palpation and nontender Auscultation: normal bowel sounds Skin General skin exam: no rashes or lesions noted Neuro General: no focal motor deficits Extrem General: Yes full ROM Psych Appearance: grossly normal Coding Level of Care Code Est Pt Level 3 (67813) Est Pt Prev Care 40-64y(46230) Diagnoses Physical exam Z00.00 Erectile dysfunction N52.9 Mild major depression F32.0 Traumatic brain injury S06.9X9A Additional Codes PHQ-9 - 17391 - PHQ-9 Billing: Yes ([id number]) DOREEN-7 Assessment Billing - DOREEN-7 Assessment Tool: DOREEN-7 Assessment 55231 ([id number]) Time Spent (min) 31 Assessment & Plan Assessment & Plan (1) Physical exam: Code(s): Z00.00 - Encounter for general adult medical examination without abnormal findings Category: Medical (2) Erectile dysfunction: Code(s): N52.9 - Male erectile dysfunction, unspecified Category: Medical (3) Mild major depression: Code(s): F32.0 - Major depressive disorder, single episode, mild Category: Medical (4) Traumatic brain injury: Comment: 2016 Code(s): S06.9X9A - Unspecified intracranial injury with loss of consciousness of unspecified duration, initial encounter Category: Medical Plan Physical exam will be repeated in a year. Urology referral done to evaluate erectile dysfunction. Declines treatment for depression. Able to live alone despite traumatic brain injury. Orders: Orders Vitamin D 25-OH Total Today E55.9 - Vitamin D deficiency, unspecified Lipid Panel Today E78.5 - Hyperlipidemia, unspecified Comprehensive [place]. Panel Fast Today M25.511 - Pain in right shoulder Vitamin B12 and Folate Today E53.8 - Deficiency of other specified B group vitamins Testosterone, Free/Total Today N52.9 - Male erectile dysfunction, unspecified PSA,Total (Free>4and<10) Today R35.1 - Nocturia Referrals Urology Referral N52.9 - Male erectile dysfunction, unspecified Medications: Refilled clotrimazole 1% 1 appl topical BID 4 weeks 15 grams 3RF hydrocortisone 1% (Anti-Itch (hydrocortisone)) 1 appl topical TID 2 weeks PRN 28.4 grams 4RF skin irritation
[2024-06-26 14:39] VITALS: BP 112/72; BMI 26.7
== END 2024-06-26 15:07 | disposition home or self-care (01) ==
PROVIDERS: PCP Internal Medicine; Visit Provider Internal Medicine
DX: Z00.00 Encounter for general adult medical examination without abnormal findings (principal); N52.9 Male erectile dysfunction, unspecified; F32.0 Major depressive disorder, single episode, mild; S06.9X9A Unspecified intracranial injury with loss of consciousness of unspecified duration, initial encounter

== ENCOUNTER → 2024-06-26 14:35 | Outpatient (BNVA) | payer MEDICARE, SELFPAY | PROVIDERS: PCP Internal Medicine; Visit Provider Internal Medicine | DX: Z00.00 Encounter for general adult medical examination without abnormal findings (principal); N52.9 Male erectile dysfunction, unspecified; F32.0 Major depressive disorder, single episode, mild; S06.9X9D Unspecified intracranial injury with loss of consciousness of unspecified duration, subsequent encounter; E78.5 Hyperlipidemia, unspecified; E55.9 Vitamin D deficiency, unspecified; M25.511 Pain in right shoulder; E53.8 Deficiency of other specified B group vitamins; R35.1 Nocturia | CPT/HCPCS: 96127; 99212; 99396 ==

== ENCOUNTER 2024-08-15 10:11 | Outpatient (REF) | payer MEDICARE, SELFPAY ==
[2024-08-15 12:46] LABS: Folate 7.8 ng/mL (> or = 4.0); Vitamin B12 440 pg/mL (200-900)
[2024-08-15 12:48] LABS: Alanine Aminotransferase 81 U/L (0-40); Albumin Level 4.6 g/dL (3.5-5.0); Alkaline Phosphatase 113 U/L (39-117); Anion Gap 10 (12-20); Aspartate Amino Transferase 74 U/L (5-37); Bilirubin Direct 0.2 mg/dL (0.0-0.5); Bilirubin Total 0.6 mg/dL (0.0-1.0); Blood Urea Nitrogen 16 mg/dL (9-16); Calcium 9.7 mg/dL (8.4-10.2); Carbon Dioxide 27 mmol/L (22-29); Chloride 108 mmol/L (96-108); Cholesterol 164 mg/dL (<200); Estimated Glomerular Filt Rate > 60; Glucose Fasting 89 mg/dL (60-99); HDL Cholesterol 51 mg/dL (>40); LDL Cholesterol Calculated 93 mg/dL (<100); Potassium 4.3 mmol/L (3.3-5.1); Sodium 141 mmol/L (135-145); Total Protein 6.9 g/dL (6.5-8.0); Triglycerides 102 mg/dL (<150)
[2024-08-15 13:05] LABS: Vitamin D 25-OH Total 28.6 ng/mL (>30)
[2024-08-15 14:41] LABS: PSA,Total (Free>4and<10) 1.03 ng/mL (0.00-4.00)
[2024-08-21 13:12] LABS: Testosterone, Free 109.4 pg/mL (35.0-155.0); Testosterone, Total 690 ng/dL (250-1100)
== END 2024-08-15 10:12 | disposition home or self-care (01) ==
LOC: HO.LAB 10:11
PROVIDERS: PCP Internal Medicine; Visit Provider Internal Medicine
DX: M25.511 Pain in right shoulder (principal); K76.0 Fatty (change of) liver, not elsewhere classified; E53.8 Deficiency of other specified B group vitamins; R35.1 Nocturia; E55.9 Vitamin D deficiency, unspecified; E78.5 Hyperlipidemia, unspecified; N52.9 Male erectile dysfunction, unspecified; Z12.5 Encounter for screening for malignant neoplasm of prostate
CPT/HCPCS: 36415; 80053; 80061; 80076; 82248; 82306; 82607; 82746; 84153; 84402; 84403

== ENCOUNTER 2024-08-21 14:55 | Outpatient (AMB) | payer MEDICARE, MEDICAID, SELFPAY ==
--- NOTE | 2024-08-21 14:54 | A.OFFVIS_ITS ---
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 Accompanied by: Self / Same As Patient Allergies Penicillins [PCN] Allergy (Severe, Verified 08/21/24 16:12) HIVES nutmeg oil (Myristica seed oil) Allergy (Intermediate, Verified 08/21/24 16:12) hives perfume Allergy (Mild, Verified 08/21/24 16:12) Unknown barley Allergy (Intermediate, Uncoded 08/21/24 16:12) rash, hives food dyes Allergy (Intermediate, Uncoded 08/21/24 16:12) rash, blue dyes on meds, drinks Medication List - Last Reviewed 08/21/24 by Krystyna Camargo aspirin 81 mg PO DAILY atorvastatin 80 mg PO DAILY bisacodyl (Dulcolax (bisacodyl)) 20 mg (4 x 5 mg) PO ONCE 1 day clotrimazole 1% 1 appl topical BID 4 weeks fluticasone propionate 50 mcg/actuation 1 spray intranasal BID 30 days peg 400-propylene glycol (PF) 0.4-0.3 % (Systane Hydration (PF)) 1 drp ophthalmic (eye) BID-QID PRN 30 days polyethylene glycol 3350 (Miralax) 17 grams PO DAILY PRN 60 days polyethylene glycol 3350 (Miralax) 17 grams PO DAILY 1 day psyllium husk (Fiber (psyllium husk)) 0.52 grams PO BID PRN 60 days HPI Comments Details: Miguel Ángel is a 64-year-old male patient of Dr. Mann. He has a past medical history of TBI, abdominal aneurysm, and spinal stenosis. He presents to the office today as a new patient for low libido, ED, and urinary frequency. In discussion with the patient today he reports a longstanding history of urinary frequency for several years. He reports following up with his PCP in discussing ongoing issues with urinary frequency, low libido, and ED at which time recommendations were made for urology referral for further assessment evaluation. In review of patient's chart it appears testosterone has been ordered and performed and these results were reviewed with the patient today: Testosterone: 09/01 690 Free testosterone: 09/01 109.4 PSA: 09/01 1.0 We discussed potential causes of urinary frequency, low libido, and ED. He discusses having had COVID multiple times and feels this has worsened his overall health. In office urinalysis results reviewed with the patient today. PVR 34 mLs. We discussed obtaining retroperitoneal ultrasound for further assessment evaluation. We also discussed lifestyle modifications such as bladder triggers and irritants as well as limiting fluids 2-3 hours prior to bed to decrease episodes of nocturia. He otherwise denies incontinence, hematuria, dysuria, foul smelling urine, changes to urinary stream, flank pain, fever, and or chills. He does report feeling lower urinary tract symptoms and ED have been manageable independently. He otherwise offers no other issues or concerns at this time. Plan I have recommended that the patient begin lifestyle modifications including reducing intake of caffeine, spicy foods, and carbonated beverages that may irritate the bladder and contribute to urinary frequency. A bladder diary over five to seven days will be beneficial to analyze fluid intake and urination patterns. His previously conducted blood work is satisfactory, so the next diagnostic step involves obtaining kidney and bladder ultrasound imaging. The patient does not require immediate pharmacologic treatment for frequency, bellieving lifestyle adjustments are more appropriate initially. Follow-up and further interventions will be considered based on response and imaging results. Patient was informed and verbally consented to the use of an ambient scribe for clinic note documentation during this visit. Discussion Notes During the consultation, I discussed urinary frequency management focusing on lifestyle and dietary modifications to reduce bladder irritants. The patient was informed about the benefits of a bladder diary for monitoring intake and output, with specific instructions given. I reviewed the artificiality of immediate pharmacologic intervention without supportive evidence of bladder or prostate growth abnormalities. I also emphasized potential avoidance of unnecessary side effects from early medication use. Diagnostic imaging with an ultrasound was recommended to assist in the underlying issue clarification. The patient was informed of the imaging?s role and forthcoming step in management. Acknowledgment of the patient's understanding and compliance was obtained and documented. [facility] Medical History Traumatic brain injury Abdominal aneurysm, ruptured Spinal stenosis at L4-L5 level Broken back Surgical History History of esophagogastroduodenoscopy (EGD) Hx of colonoscopy Stented coronary artery Family History Sister Lung cancer Mother Blind Alcoholic Father No problems noted. Social History Housing: Apartment Alcohol intake: current Alcohol intake frequency: holidays/special occasions only Alcohol type: wine Patient Tobacco Use Status: Never used Tobacco e-Cigarette/Vaping Use: Never Used Second Hand Smoke Exposure: Yes service: Yes Current occupational status: retired Cognitive needs: No Hearing needs: No Vision needs: No Review of Systems Const All systems reviewed & are unremarkable except as noted in HPI and below Physical Exam Const General: cooperative, comfortable, no acute distress, well developed, alert and awake Orientation/consciousness: patient oriented x3 Limitations: no limitations HEENT Head: Yes normal to inspection, Yes normocephalic and Yes atraumatic Ears: hearing grossly normal bilaterally Eyes General: appearance normal, both eyes and all related structures Neck Neck: Yes normal visual inspection and Yes trachea midline Chest Chest palpation & inspection: normal inspection of the chest Resp Effort & Inspection: normal respiratory effort and able to speak in complete sentences Cardio Rate: regular rate GI Inspection: Yes normal to inspection General: Yes no CVA tenderness Back/Spine/Pelvis Back: no CVA tenderness Skin General skin exam: no rashes or lesions noted Neuro General: patient oriented x3 Extrem General: Yes normal to inspection Psych Appearance: grossly normal and well kempt Mental Status: mental status grossly normal Speech and movement: Normal speech and movement present and Clear speech present Affect: normal affect Attitude: cooperative Thought process: Flight of ideas present Insight: Fair insight present (Psych) Judgement: Fair judgement present (Psych) Office Procedures Post Void Residual Post Residual Void Post Void Residual (PVR): 34 [id number]-Qoic Void Residual by ultrasound Results AMB Urinalysis, Automated UA Leukoctes 0 Mervat/uL Last Edit by Krystyna Camargo on 08/21/24 16:41 UA Nitrite Last Edit by Krystyna Camargo on 08/21/24 16:41 UA Urobilinogen 0.2 mg/dL Last Edit by Krystyna Camargo on 08/21/24 16:41 UA Protein 0 mg/dL Last Edit by Krystyna Camargo on 08/21/24 16:41 UA pH 7.5 Last Edit by Krystyna Camargo on 08/21/24 16:41 UA Blood 0 Hi/uL Last Edit by Krystyna Camargo on 08/21/24 16:41 UA Specific [place] 1.010 Last Edit by Krystyna Camargo on 08/21/24 16:41 UA Ketone Last Edit by Krystyna Camargo on 08/21/24 16:41 UA Bilirubin 0 mg/dL Last Edit by Krystyna Camargo on 08/21/24 16:41 UA Glucose 0 mg/dL Last Edit by Krystyna Camargo on 08/21/24 16:41 Results Reviewed Results Reviewed: Laboratory Last Values Urine pH (Auto) 7.5 08/21/24 16:40 Specific [place] (Auto) 1.010 08/21/24 16:40 Urine Protein (Auto) 0 mg/dL 08/21/24 16:40 Glucose (UA)(Auto) 0 mg/dL 08/21/24 16:40 Urine Blood (Auto) 0 Hi/uL 08/21/24 16:40 Urine Bilirubin (Auto) 0 mg/dL 08/21/24 16:40 Urine Urobilinogen (Auto) 0.2 mg/dL 08/21/24 16:40 Leukocyte Esterase (Auto) 0 Mervat/uL 08/21/24 16:40 Assessment & Plan Assessment & Plan (1) Erectile dysfunction: Code(s): N52.9 - Male erectile dysfunction, unspecified Category: Medical (2) Urinary frequency: Code(s): R35.0 - Frequency of micturition Category: Medical (3) Low libido: Code(s): R68.82 - Decreased libido Category: Medical Plan In office urinalysis results reviewed with the patient today; as noted above. PVR 34 mL We discussed recent PSA, testosterone, and free testosterone results; as noted above. We discussed obtaining retroperitoneal ultrasound for further assessment evaluation. We discussed further treatment options of erectile dysfunction as well as urinary frequency and nocturia. We discussed bladder triggers/irritants. We discussed importance of limiting fluids 2-3 hours prior to bed to decrease episodes of nocturia. Information provided regarding bladder diary for further assessment evaluation. Follow-up in 3 months with imaging, PVR, and bladder diary; or sooner with any issues, concerns, and or questions. Orders: Orders AMB Urinalysis Automated Today Z13.9 - Encounter for screening, unspecified AMB Post Void Residual by ultrasound Today Z13.9 - Encounter for screening, unspecified US retroperitoneal comp Today R35.0 - Frequency of micturition, R35.1 - Nocturia Patient Instructions: The patient had an opportunity to ask questions regarding the treatment plan. All questions were answered. Physical exam, labs, and imaging were discussed and reviewed in detail. As well as risks, benefits, and discussion of treatment choices. No major barriers to understanding were identified. The patient expressed understanding and agreement with the above treatment plan. The patient was made aware they should contact our office by phone for worsening of their current condition, the appearance of new symptoms, or with any questions or concerns. Compliance is encouraged with any medications and follow up testing that is ordered. It is a privilege to be allowed the opportunity to participate in? your urological care.? Again, if you have any questions or concerns If you have any questions or concerns please do not hesitate to contact me. The office is [phone]. This note is constructed using voice recognition software. While every effort has been made to ensure accuracy telecom sales consultant errors may have been included. Yours sincerely, MO Calderon Coding Level of Care Code New Pt Level 4 (59604) Diagnoses Erectile dysfunction N52.9 Urinary frequency R35.0 Low libido R68.82 CPT Codes Post Residual Void - PVR CPT Code: 69160-Plzs Void Residual by ultrasound ([id number]) Time Spent (min) 35
== END 2024-08-21 15:41 | disposition home or self-care (01) ==
LOC: HO.HUSH 14:55
PROVIDERS: PCP Internal Medicine; Visit Provider Nurse Practitioner Family
DX: N52.9 Male erectile dysfunction, unspecified (principal); R35.0 Frequency of micturition; R68.82 Decreased libido; Z13.9 Encounter for screening, unspecified
CPT/HCPCS: 99204

== ENCOUNTER → 2024-08-21 14:55 | Outpatient (BNVA) | payer MEDICARE, SELFPAY | PROVIDERS: PCP Internal Medicine; Visit Provider Nurse Practitioner Family | DX: N52.9 Male erectile dysfunction, unspecified (principal); R35.1 Nocturia; R35.0 Frequency of micturition; R68.82 Decreased libido | CPT/HCPCS: 51798; 81003; 99202 ==

== ENCOUNTER 2024-09-11 14:34 | Outpatient (AMB) | payer MEDICARE, SELFPAY ==
[2024-09-11 14:51] VITALS: BMI 25.6
--- NOTE | 2024-09-11 14:51 | A.OFFVIS_ITS ---
VS Expanded 09/11/24 14:51 Height 6 ft Weight 188 lb 7.924 oz BMI 25.6 Intake Visit Reasons: hyperlipidemia Allergies Penicillins [PCN] Allergy (Severe, Verified 08/21/24 16:12) HIVES nutmeg oil (Myristica seed oil) Allergy (Intermediate, Verified 08/21/24 16:12) hives perfume Allergy (Mild, Verified 08/21/24 16:12) Unknown barley Allergy (Intermediate, Uncoded 08/21/24 16:12) rash, hives food dyes Allergy (Intermediate, Uncoded 08/21/24 16:12) rash, blue dyes on meds, drinks Nutrition Presentation Details: Pt presents for MNT for hypercholesterolemia Pt reports working on choosing lower fat foods he is keeping a list of foods and fluids Pt typically has B: cereal/cheerios/raisin or mix fruits with 2% milk in AM lunch : peanut butter sandwich on whole wheat bread ,v8 juice dinner: rice/chicken/beets or spaghetti meatballs,salad denies alcohol intake smokes: marihuana typically at the beginning of the month Participates in [facility] - no declined referral to [email or web address] meals at this time BS Monitoring Most Recent Diabetes Results: Cholesterol 164 mg/dL (<200) 08/15/24 HDL Cholesterol 51 mg/dL (>40) 08/15/24 Triglycerides 102 mg/dL (<150) 08/15/24 Creatinine 0.87 mg/dL (0.5-1.4) 08/15/24 Blood Urea Nitrogen 16 mg/dL (9-16) 08/15/24 Sodium 141 mmol/L (135-145) 08/15/24 Potassium 4.3 mmol/L (3.3-5.1) 08/15/24 Chloride 108 mmol/L (96-108) 08/15/24 Carbon Dioxide 27 mmol/L (22-29) 08/15/24 Calcium 9.7 mg/dL (8.4-10.2) 08/15/24 AST 74 U/L (5-37) H 08/15/24 ALT 81 U/L (0-40) H 08/15/24 Total Protein 6.9 g/dL (6.5-8.0) 08/15/24 Albumin 4.6 g/dL (3.5-5.0) 08/15/24 [facility] Medical History Traumatic brain injury Abdominal aneurysm, ruptured Spinal stenosis at L4-L5 level Broken back Surgical History History of esophagogastroduodenoscopy (EGD) Hx of colonoscopy Stented coronary artery Family History Sister Lung cancer Mother Blind Alcoholic Father No problems noted. Social History Housing: Apartment Alcohol intake: current Alcohol intake frequency: holidays/special occasions only Alcohol type: wine Patient Tobacco Use Status: Never used Tobacco e-Cigarette/Vaping Use: Never Used Second Hand Smoke Exposure: Yes service: Yes Current occupational status: retired Cognitive needs: No Hearing needs: No Vision needs: No Assessment & Plan Assessment & Plan (1) Pure hypercholesterolemia: Code(s): E78.00 - Pure hypercholesterolemia, unspecified Category: Medical Plan: [id number] ( 04/02 ),06/03, 85 kg (10/01) Est kcal needs as per MSJ: 2700 (40% carb, 30% protein/fat) Est fluid needs as per 25-30 ml/d:2800 Est prot per day as per 1 g/kg bw: 92 Recommend fiber intake : 8-10 g per day and gradually increase to 25-28 g per day for women and 35-38 g for men or as tolerated Recommend sodium intake per day : less than 1500 mg less than 2000 mg Educated patient on: ( R = reviewed V = verbalizes understanding N/R = needs review N/A = not applicable * Food sources of carbohydrate, adequate serving sizes and its role in various health conditions: R * Differences between complex carbohydrates a simple carbohydrates, role of fiber in diet: R * Lean protein sources of foods: R * Differences between types of fats and role in diet (mono on saturated fat fatty acids, saturated fatty acids, trans fats): R * Food sources of sodium in salt and healthy modifications for heart health in kidney health: R V R/V * Vitamins and minerals: R * Healthy plate method concept: R * Physical activity: Benefits a precaution: R Patient Instructions: Continue working on following healthy plate method choosing low saturated fats Include high fiber foods like oats, beans/lentils at least once a day gradually increasing fiber by 4g daily as tolerated increase fluids as you increase fiber to prevent constipation Coding Level of Care Code Nutr Indiv Subseq (74102) Diagnoses Pure hypercholesterolemia E78.00 Time Spent (min) 30
== END 2024-09-11 15:27 | disposition home or self-care (01) ==
LOC: HO.ENCR 14:35
PROVIDERS: PCP Internal Medicine; Visit Provider Dietitian, Registered
DX: E78.00 Pure hypercholesterolemia, unspecified (principal)

== ENCOUNTER → 2024-09-11 14:34 | Outpatient (BNVA) | payer MEDICARE, SELFPAY | PROVIDERS: PCP Internal Medicine; Visit Provider Dietitian, Registered | DX: E78.00 Pure hypercholesterolemia, unspecified (principal) | CPT/HCPCS: 97803 ==

== ENCOUNTER 2024-10-16 08:22 | Day surgery (SDC) | payer MEDICARE, SELFPAY ==
[2024-10-12 13:51] VITALS: BMI 25.2
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
--- NOTE | ~2024-10-16 | XR_ITS ---
EXAMINATION: XR CHEST CLINICAL INFORMATION: Abd pain after colonoscopy COMPARISON: None available. TECHNIQUE: Frontal view of the chest was obtained. FINDINGS: The cardiac, hilar, and mediastinal contours are normal. The lungs are clear bilaterally. No pneumothorax or effusion. No focal osseous or soft tissue abnormality. Mild gaseous distention of the colon subjacent to the diaphragm. No definite free air. XR/XR chest 1V IMPRESSION: 1. No active pulmonary disease. 2. No subdiaphragmatic free air identified. Electronically signed by: Julio Henderson MD 10/16/2024 12:07 PM EDT
--- NOTE | ~2024-10-16 | XR_ITS ---
EXAMINATION: XR ABDOMEN KUB CLINICAL INDICATION: abd pain after colonoscopy COMPARISON: None available. TECHNIQUE: AP view of the abdomen. FINDINGS: There is gaseous distention of the entire colon post colonoscopy, expected. There is no evidence of free intraperitoneal air identified on these images. There is a polypectomy clip in the proximal ascending colon. There is no small bowel dilatation. There is no stomach dilatation. Lung bases are clear. No organomegaly. No abnormal soft tissue calcifications. No discrete osseous abnormality. Mild degenerative changes in both hip joints in the lower lumbar spine. XR/XR KUB IMPRESSION: 1. There is no evidence of free intraperitoneal air. There is mild gaseous distention of the entire colon, expected postcolonoscopy. 2. There is a polypectomy clip in the proximal ascending colon. 3. No abnormal soft tissue calcifications. Electronically signed by: Julio Henderson MD 10/16/2024 12:12 PM EDT
--- NOTE | 2024-10-16 07:25 | MHC.SHP ---
Pre-Procedural Eval Section A - 24 Hr Update-Section A only Date of Service: 10/16/24 The patient is an INPATIENT: No The patient has been examined within 24 hours of the surgical procedure. The History & Physical has been completed within 30 days and I have reviewed it.: No Section B - Complete if H&P > 30 days Chief Complaint: Colon cancer screening, dysphagia Relevant Family History (Specify if Yes): No Relevant Social History: None Present Medications: see Short Stay Collaborative assessment Medical History: Significant History (Traumatic brain injury Abdominal aneurysm, ruptured Spinal stenosis at L4-L5 level Broken back) History of Previous Operations: Relevant previous surgery/procedure and date(s) (History of esophagogastroduodenoscopy (EGD) Hx of colonoscopy Stented coronary artery) Allergies: Allergies Allergy/AdvReac Type Severity Reaction Status Date / Time Penicillins [PCN] Allergy Severe HIVES Verified 08/21/24 16:12 nutmeg oil (Myristica seed Allergy Intermediate hives Verified 08/21/24 16:12 oil) perfume Allergy Mild Unknown Verified 08/21/24 16:12 barley Allergy Intermediate rash, hives Uncoded 08/21/24 16:12 food dyes Allergy Intermediate rash, blue Uncoded 08/21/24 16:12 dyes on meds, drinks Review of Systems Sugical H&P ROS: Negative: Constitution, Cardiovascular, Respiratory and Gastrointestinal Exam Surgical H&P Exam: Normal: Heart, Normal: Lungs, Normal: Extremities and Normal: Abdomen Plan Diagnosis/Plan: Unchanged I have reviewed the history and physical and performed a pertinent physical examination on my patient. No changes have occurred unless specified. Time Spent With Patient Time: Total time managing care of this patient today ____ minutes.
[2024-10-16 08:36] VITALS: BMI 25.1
[2024-10-16 08:53] VITALS: BP 109/72; PULSE 66; RESP 16; TEMP 36.6; O2SAT 98
[2024-10-16] MEDS: Lactated Ringers 1,000 ML 100 ML IVCONT (09:09)
--- NOTE | 2024-10-16 09:41 | HO.OPN-COLON ---
Colonoscopy Operative Note Operative Note Date of Service: 10/16/24 Narrative: FLEXIBLE TRANSORAL UPPER GASTROINTESTINAL ENDOSCOPY WITH BIOPSIES AND ESOPHAGEAL BALLOON DILATION AND COLONOSCOPY TILL CECUM WITH BIOPSIES, SNARE POLYPECTOMY AND HEMOCLIP PLACEMENT Pre-op diagnosis: Colon cancer screening, Dysphagia Post-op diagnosis: GERD, Gastritis, gastric polyps, Colon Polyps, Diverticulosis, hemorrhoids Endoscopist:? González March MD Anesthesia:?MAC UPPER ENDOSCOPY Consent: Indications for the procedure and potential complications of bleeding, perforation, reaction to medications and missed diagnosis were discussed with the patient and informed consent was obtained. Instrument: Olympus GIF H 190 mid size upper endoscope Monitoring: Vital signs and clinical assessment, continuous EKG monitoring, Pulse oximetry, Carbon Dioxide monitoring and blood pressure monitoring were done throughout the procedure. Procedure: The patient was placed in the left lateral decubitis position and pre-procedure medications were administered and a bite block was placed. The endoscope was inserted into the mouth and advanced under direct vision to the third part of duodenum. A careful inspection was made as the upper endoscope was withdrawn including a retroflexed examination of the proximal stomach; Findings and interventions are described below. Findings: Larynx: Normal Esophagus: Mildly tortuous esophagus without stricture or ring. Empiric balloon dilation was performed with a 19 mm CRE balloon times 60 seconds. GE junction at 40 cms. Minimal esophagitis at GE junction and no Acuna's. Stomach: Multiple 4-5 mm benign appearing polyps in the gastric body - biopsied. Mild gastric antral erythema - biopsies were obtained from the antrum. Grade 2 flap valve on retroflexed examination of the cardia. Duodenum: Normal bulb and descending duodenum Biopsies were obtained from descending duodenum to check for celiac sprue Intervention: Biopsies as noted above COLONOSCOPY PROCEDURE NOTE Instrument: Olympus CF H 190 L variable stiffness adult colonoscope Monitoring: Vital signs and clinical assessment, intermittent blood pressure monitoring, continuous EKG monitoring, Pulse oximetry and Carbon Dioxide monitoring were done throughout the procedure. Please see anesthesia flowsheet. Colon withdrawl time was 15 minutes. Procedure: The patient was placed in the left lateral decubitis position and pre-procedure medications were administered. After a digital rectal examination of the ano-rectum, the video colonoscope was inserted into the rectum and advanced through the colon to the cecum. The colonoscope was slowly withdrawn in a retrograde panoramic fashion and the colon mucosa was carefully examined including a retroflexed view of the rectum. Findings and interventions are described below. Procedure Difficulty: without difficulty - colon was long and tortuous and there was some loop formation he Findings: Terminal Ileum: Not evaluated Cecum: Normal Ascending Colon: A 12-15 mm sessile polyp in the proximal AC - removed with a hot snare . Polypectomy site was closed with 1 hemoclip. A 4-5 mm sessile polyp in the mid AC - removed with a cold biopsy Transverse Colon: Normal Descending Colon: A 10 mm hyperplastic appearing polyp - removed with a hot snare. Sigmoid Colon: Moderate diverticulosis Rectum: Normal Ano-rectum: Moderate internal hemorrhoids Colon preparation: Excellent, after some irrigation. Francisco Bowel Preparation Scale Right colon; 3 Transverse colon: 3 Left colon; 3 (0 = Unprepared colon segment with mucosa not seen due to solid stool that cannot be cleared. 1 = Portion of mucosa of the colon segment seen, but other areas of the colon segment not well seen due to staining, residual stool and/or opaque liquid. 2 = Minor amount of residual staining, small fragments of stool and/or opaque liquid, but mucosa of colon segment seen well. 3 = Entire mucosa of colon segment seen well with no residual staining, small fragments of stool or opaque liquid) Impression and Post Procedure Diagnosis: Endoscopy Findings: ESOPHAGUS: Mildly tortuous esophagus without stricture or ring. Empiric balloon dilation to 19 mm (57 F) . Minimal esophagitis at GE junction and no Acuna's. STOMACH: Mild gastritis and benign appearing gastric polyps DUODENUM: Normal - biopsied to check for celiac sprue Colonoscopy Findings: Three small to medium sized polyps were removed Moderate diverticulosis seen in the sigmoid colon Moderate hemorrhoids on retroflexed exam. Plan: I will send a letter with biopsy result Repeat Colonoscopy in 2- 3 years if polyps are adenomatous and 5 years if polyps are hyperplastic. A summary of above findings and relevant handouts were given to the patient. BIOPSIES SHOWED: A. Small bowel, biopsy: Duodenal mucosa within normal limits. B. Stomach, antrum, biopsy: Antral-type and oxyntic mucosa with mild chronic inactive inflammation; no Helicobacter organisms seen. C. Stomach, polypectomy: Fundic gland polyp with background mild chronic inactive inflammation; no Helicobacter organisms seen. D. Colon, ascending, polypectomies: Fragments of tubulovillous adenomata; negative for high-grade dysplasia or carcinoma. E. Colon, descending, polypectomies: Colonic mucosa with mild surface hyperplastic changes (one fragment). Letter sent to the patient with biopsy results. Patient was placed on the colonoscopy recall list for repeat colonoscopy in 2 years.
[2024-10-16 10:40] VITALS: BP 129/86; PULSE 61; RESP 15; TEMP 37.1; O2SAT 100
[2024-10-16 10:55] VITALS: BP 147/90; PULSE 50; RESP 16; TEMP 37.1; O2SAT 98
--- NOTE | 2024-10-16 12:53 | PC.NURSE ---
AT 1120 PATIENT WAS BROUGHT OVER TO THE DISCHARGE AREA. PATIENT CAME OVER WITH FACIAL GRIMACING AND STATED MID ABDOMINAL PAIN THAT WAS PRETTY SEVERE, 9/10. PATIENT WAS TOLD IT WAS MOST LIKELY GAS PAINS BUT THIS RN HAD DR. VALADEZ COME OVER AND REASSESS PATIENT. PATIENT WAS BROUGHT BACK OVER TO PACU FOR AN XRAY. PATIENT'S BP WHILE IN DC AREA SITTING UP WAS 160/102, HR 44 TO 47. PATIENT RECEIVIED HIS XRAY WHICH COMFIRMED GAS. PT NOW BACK IN DC AREA AND STATES FEELING MUCH BETTER THAN EARLIER.
== END 2024-10-16 13:30 | disposition home or self-care (01) ==
PROVIDERS: PCP Internal Medicine; Visit Provider Internal Medicine Gastroenterology
PROC: (CPT 45385; principal; 2024-10-16 09:30)
DX: Z12.11 Encounter for screening for malignant neoplasm of colon (principal); D12.2 Benign neoplasm of ascending colon; K63.5 Polyp of colon; K57.30 Diverticulosis of large intestine without perforation or abscess without bleeding; K64.8 Other hemorrhoids; R14.1 Gas pain; R13.10 Dysphagia, unspecified; K22.89 Other specified disease of esophagus; K21.9 Gastro-esophageal reflux disease without esophagitis; K20.80 Other esophagitis without bleeding; K29.50 Unspecified chronic gastritis without bleeding; K31.7 Polyp of stomach and duodenum; I10 Essential (primary) hypertension; I71.30 Abdominal aortic aneurysm, ruptured, unspecified; I25.10 Atherosclerotic heart disease of native coronary artery without angina pectoris; Z95.5 Presence of coronary angioplasty implant and graft; J45.909 Unspecified asthma, uncomplicated; M48.061 Spinal stenosis, lumbar region without neurogenic claudication; Z87.820 Personal history of traumatic brain injury; Z98.890 Other specified postprocedural states; Z88.0 Allergy status to penicillin; Z79.82 Long term (current) use of aspirin; Z79.51 Long term (current) use of inhaled steroids; Z79.899 Other long term (current) drug therapy
CPT/HCPCS: 45385; 45380; 43249; 43239; 71045; 74018; 88305; 88313; 88342; C1726; J2003; J2704

== ENCOUNTER → 2024-10-16 08:22 | Outpatient (BNV) | payer MEDICARE, SELFPAY | PROVIDERS: PCP Internal Medicine; Visit Provider Internal Medicine Gastroenterology | DX: Z12.11 Encounter for screening for malignant neoplasm of colon (principal); D12.2 Benign neoplasm of ascending colon; D12.4 Benign neoplasm of descending colon; K57.30 Diverticulosis of large intestine without perforation or abscess without bleeding; R13.10 Dysphagia, unspecified; K20.90 Esophagitis, unspecified without bleeding; K31.7 Polyp of stomach and duodenum; K29.70 Gastritis, unspecified, without bleeding; K64.8 Other hemorrhoids | CPT/HCPCS: 43239; 43249; 45385 ==

== ENCOUNTER → 2024-10-16 11:32 | Outpatient (BNV) | payer MEDICARE, SELFPAY | PROVIDERS: PCP Internal Medicine; Visit Provider Radiology Diagnostic Radiology | DX: R10.9 Unspecified abdominal pain (principal); R14.0 Abdominal distension (gaseous) | CPT/HCPCS: 71045; 74018 ==

== ENCOUNTER 2024-11-09 11:15 | Outpatient (REF) | payer MEDICARE, SELFPAY ==
--- NOTE | ~2024-11-09 | US_ITS ---
CLINICAL HISTORY: R35.0 - Frequency of micturition US Renal Comparison: None provided Findings: Right kidney normal size and echotexture, 11.8 cm length. 1.1 cm right parapelvic cyst is present. Left kidney normal size and echotexture, 12.9 cm length. No hydronephrosis of either kidney. Urinary bladder is unremarkable. Prevoid volume 370 mL. Postvoid volume 75 mL. Bilateral ureteral jets are visualized. Prostate measures 4.4 x 4.0 x 4.4 cm with a total volume of 40.7 mL. IMPRESSION: 1. 1.1 cm right parapelvic cyst. 2. Elevated postvoid residual of 75 mL. 3. Enlarged prostate gland with a total volume of 40.7 mL. This document has been electronically signed by: Sanju Allen on 11/10/2024 09:10:05
== END 2024-11-09 11:16 | disposition home or self-care (01) ==
LOC: HO.US 11:15
PROVIDERS: PCP Internal Medicine; Visit Provider Nurse Practitioner Family
DX: R35.0 Frequency of micturition (principal); R35.1 Nocturia
CPT/HCPCS: 76770

== ENCOUNTER → 2024-11-09 11:17 | Outpatient (BNV) | payer MEDICARE, SELFPAY | PROVIDERS: PCP Internal Medicine; Visit Provider Radiology Vascular & Interventional Radiology | DX: N28.1 Cyst of kidney, acquired (principal); N40.0 Benign prostatic hyperplasia without lower urinary tract symptoms | CPT/HCPCS: 76770 ==

== ENCOUNTER 2024-12-06 08:51 | Outpatient (AMB) | payer MEDICARE, SELFPAY ==
[2024-12-06 08:54] VITALS: BP 116/74; PULSE 76; RESP 18; TEMP 36.3; O2SAT 97; BMI 24.7
--- NOTE | 2024-12-06 08:54 | A.OFFPC_ITS ---
Vital Signs 12/06/24 08:54 Height 6 ft Weight 182 lb 2 oz BMI 24.7 BP 116/74 Blood Pressure Location Lt brachial Position Sitting Respiration 18 Pulse 76 Pulse Source Pulse Oximeter Temp 97.3 F Temp Source Temporal Artery Scan Pulse Oximetry (%) 97 Oxygen Delivery Method Room Air Intake Visit Reasons: tick bite Allergies Penicillins (PCN) Allergy (Severe, Verified 12/06/24 08:58) HIVES nutmeg oil (Myristica seed oil) Allergy (Intermediate, Verified 12/06/24 08:58) hives perfume Allergy (Mild, Verified 12/06/24 08:58) Headache barley Allergy (Intermediate, Uncoded 12/06/24 08:58) rash, hives food dyes Allergy (Intermediate, Uncoded 12/06/24 08:58) rash, blue dyes on meds, drinks Tobacco use date assessed: 12/06/24 Dental Screening Dental Screen Date: 12/06/24 Did you have a dental visit in the last 12 months?: Yes Did you have a dental problem in the last 6 months where you did not have access to dental care?: No Was dental information given to patient?: Patient has dentist HPI tick bite HPI Details tick scalp and 45 days ago PFSH Medical History Bilateral inguinal hernia Spinal stenosis Migraines TMJ arthritis Chronically dry eyes Elevated cholesterol GERD (gastroesophageal reflux disease) Depression CAD (coronary artery disease) Traumatic brain injury Abdominal aneurysm, ruptured Spinal stenosis at L4-L5 level Broken back Surgical History H/O abdominal surgery H/O knee surgery History of esophagogastroduodenoscopy (EGD) Hx of colonoscopy Stented coronary artery Family History Sister Lung cancer Mother Blind Alcoholic Father No problems noted. Social History Housing: Apartment Alcohol intake: current Alcohol intake frequency: holidays/special occasions only Alcohol type: wine Patient Tobacco Use Status: Never used Tobacco e-Cigarette/Vaping Use: Never Used Second Hand Smoke Exposure: Yes service: Yes Current occupational status: retired Cognitive needs: No Hearing needs: No Vision needs: No Questionnaire PHQ-9 Over the last 2 weeks, how often have you been bothered by any of the following problems? 1. Little interest or pleasure in doing things: more than half the days 2. Feeling down, depressed, or hopeless: not at all 3. Trouble falling or staying asleep, or sleeping too much: more than half the days 4. Feeling tired or having little energy: several days 5. Poor appetite or overeating: more than half the days 6. Feeling bad about yourself - or that you are a failure or have let yourself or your family down: not at all 7. Trouble concentrating on things, such as reading the newspaper or watching television: not at all 8. Moving or speaking so slowly that other people could have noticed. Or the opposite - being so fidgety or restless that you have been moving around a lot more than usual: not at all 9. Thoughts that you would be better off or of hurting yourself in some way: not at all Total score: 7 Depression Screening Interpretation: Positive Depression Screening Follow-up: Existing condition and Follow-up Visit Requested Depression Screening Done: Yes Source: Developed by Drs. Olman Jama, Theresa Reyes, José Luis Cottrell and colleagues, with an educational ciro from [employer]. Thrive Questionnaire Date Thrive assessed: 06/26/24 I am a: Patient What is your living situation today?: I have a steady place to live Within the past 12 months, did the food you bought not last and you didn't have the money to get more?: Sometimes True Within the past 12 months, did you worry whether your food would run out before you got money to buy more?: Sometimes True Do you have trouble paying for medicines?: No Do you have trouble getting transportation to medical appointments?: No Do you have trouble paying your heating and electricity bill?: No Do you have trouble taking care of your child, family member or friend?: No Do you have trouble with day-to-day activities such as bathing, preparing meals, shopping, managing finances, etc.?: No Are you currently unemployed and looking for a job?: No Are you interested in more education?: I choose not to answer this question Please select the resources that you would like help with: None Currently or been in a relationship where the following occur: No concerns reported THRIVE Score: 2 AUDIT C Alcohol Use Questionnaire (AUDIT-C) 1. How often do you have a drink containing alcohol?: Never 3. How often do you have six or more drinks on one occasion?: Never Total Score: 0 Score Reviewed/Action Taken: No DOREEN-7 AMB Questionnaire DOREEN-7 Date DOREEN - 7 assessed: 06/26/24 Feeling nervous, anxious, or on edge: 0 = Not at all Not being able to stop or control worryin = Not at all Worrying too much about different things: 0 = Not at all Trouble relaxin = Not at all Being so restless that it is hard to sit still: 0 = Not at all Becoming easily annoyed or irritable: 0 = Not at all Feeling afraid as if something awful might happen: 0 = Not at all Total DOREEN-7 score (0-4 normal; 5-9 mild; 10-14 moderate; 15-21 severe): 0 Source: Developed by Drs. Olman Jama, Theresa Reyes, José Luis Cottrell and colleagues, with an educational ciro from [employer]. Physical exam (Primary Care) Vital Signs: Last Vital Signs Temp 97.3 F 12/06/24 08:54 Pulse 76 12/06/24 08:54 Resp 18 12/06/24 08:54 BP 116/74 12/06/24 08:54 Pulse Ox 97 12/06/24 08:54 Oxygen Delivery Method Room Air 12/06/24 08:54 BMI result Body Mass Index 24.7 Tobacco/Smoking Status: Tobacco use Status Tobacco use date assessed 12/06/24 12/06/24 09:00 Patient Tobacco Use Status Never used Tobacco 12/06/24 09:00 e-Cigarette/Vaping Use Never Used 12/06/24 09:00 PHQ-9: PHQ-9 Score PHQ-9: Total score 7 12/06/24 09:20 Depression Screening Interpretation: Positive Depression Screening Follow-up: Existing condition and Follow-up Visit Requested Thrive Assessment: Date of Thrive Assessment Date Thrive assessed 06/26/24 12/06/24 09:00 Currently or been in a relationship where the following occur: No concerns reported Const General: alert; No acute distress Eyes Conjunctivae: conjunctivae normal Resp Auscultation: clear to auscultation bilaterally Cardio Rate: regular rate Rhythm: regular rhythm GI Inspection: Yes normal to inspection Extrem General: Yes normal to inspection and No edema Coding Level of Care Code Est Pt Level 4 (40161) Diagnoses BPH (benign prostatic hyperplasia) N40.0 Stented coronary artery Z95.5 Pure hypercholesterolemia E78.00 GERD (gastroesophageal reflux disease) K21.9 Tubular adenoma of colon D12.6 Tick bite W57.XXXA Assessment & Plan Assessment & Plan (1) BPH (benign prostatic hyperplasia): Code(s): N40.0 - Benign prostatic hyperplasia without lower urinary tract symptoms Category: Medical Plan: Patient follows up with urology having urinary retention with BPH (2) Stented coronary artery: Comment: 2012 Code(s): Z95.5 - Presence of coronary angioplasty implant and graft Category: Surgical Plan: Control the cholesterol, weight, blood pressure, continue with aspirin (3) Pure hypercholesterolemia: Code(s): E78.00 - Pure hypercholesterolemia, unspecified Category: Medical Plan: Avoid fried foods, chicken skin, eggs, butter margarine, pastries and meat. Be it pork or beef they have a lot of cholesterol on atorvastatin LDL goal of less than 70 patient's last blood work was in August 2024 (4) GERD (gastroesophageal reflux disease): Code(s): K21.9 - Gastro-esophageal reflux disease without esophagitis Category: Medical Plan: Avoid the foods that causes that usually spicy foods, tomato products, juices, coffee, soda and foods that your sensitive to. After eating do not lie down, allow 3-4 hours before in lie down. And keep the head of bed above 30 degrees to avoid the acid from going up. (5) Tubular adenoma of colon: Comment: October 2024 Dr. March Code(s): D12.6 - Benign neoplasm of colon, unspecified Category: Medical Plan: October 2024 last colonoscopy will need repeat in 2-3 years (6) Tick bite: Code(s): W57.XXXA - Bitten or stung by nonvenomous insect and other nonvenomous arthropods, initial encounter Category: Medical Plan History of Present Illness The patient is a 64-year-old male presenting with a tick bite. The patient has a history of traumatic brain injury sustained in 2017. He also has a history of coronary artery disease, for which he has a coronary stent and is on atorvastatin with an LDL goal of less than 70 mg/dL. The patient has been diagnosed with gastroesophageal reflux disease and hypercholesterolemia. He is also managing depression. In November, the patient underwent an ultrasound due to urinary frequency, which revealed a 1 cm parapelvic cyst and postvoid residual of 75 cc, indicating an enlarged prostate. He follows up with urology for benign prostatic hyperplasia and urinary retention. The patient was referred to gastroenterology and underwent a colonoscopy in October 2024, which revealed tubular adenoma and mild gastritis, but no Acuna's esophagus. Polyps were removed during the procedure. Recently, the patient discovered ticks on his scalp after being in a wooded area, leading to concerns about Lyme disease. A baseline Lyme test was discussed as a precautionary measure. Health Maintenance - Colonoscopy in October 2024 with follow-up recommended in 2 to 3 years - Baseline Lyme test discussed for tick bite - Cholesterol management with atorvastatin, LDL goal less than 70 mg/dL Social History - Reports reducing alcohol intake and focusing on hydration with spring water - Dietary habits include avoiding fast foods, chicken skin, butter, margarine, pork, and beef; uses olive oil for cooking Review of Systems - Neurological: Denies any new neurological symptoms post-traumatic brain injury - Cardiovascular: Reports history of coronary artery disease, denies current chest pain - Gastrointestinal: Reports history of GERD, denies current abdominal pain - Genitourinary: Reports urinary retention, denies dysuria - Dermatological: Reports tick bite on scalp, denies rash Physical Exam Results - Ultrasound (November): 1 cm parapelvic cyst, postvoid residual of 75 cc, enlarged prostate - Colonoscopy (October 2024): Tubular adenoma, mild gastritis, no Acuna's esophagus Plan The patient will undergo a baseline Lyme test to assess for any potential Lyme disease following the tick bite. Cholesterol management will continue with atorvastatin, aiming for an LDL goal of less than 70 mg/dL to reduce the risk of further coronary events. The patient is advised to follow up with urology for management of benign prostatic hyperplasia and urinary retention. A repeat colonoscopy is recommended in 2 to 3 years to monitor for any recurrence of polyps. Patient was informed and verbally consented to the use of an ambient scribe for clinic note documentation during this visit. Discussion Notes I discussed with the patient the importance of undergoing a baseline Lyme test following the tick bite to establish a reference point for any potential Lyme disease. We reviewed the patient's cholesterol management plan, emphasizing the need to maintain an LDL level below 70 mg/dL to prevent further coronary events. I advised the patient to continue follow-up with urology for benign prostatic hyperplasia and urinary retention management. A repeat colonoscopy was recommended in 2 to 3 years to monitor for any recurrence of polyps. Patient Instructions - Schedule a baseline Lyme test as discussed. - Continue taking atorvastatin as prescribed to manage cholesterol levels. - Follow up with urology for prostate management. - Plan for a repeat colonoscopy in 2 to 3 years. Orders: Orders Lyme IgG/IgM w/reflex to WB Today W57.XXXA - Bitten or stung by nonvenomous insect and other nonvenomous arthropods, initial encounter Lipid Panel Today E78.00 - Pure hypercholesterolemia, unspecified Comprehensive Met. Panel Today E78.00 - Pure hypercholesterolemia, unspecified Complete Blood Count Auto Diff Today E78.00 - Pure hypercholesterolemia, unspecified Free T4 (Free Thyroxine) Today E78.00 - Pure hypercholesterolemia, unspecified
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
== END 2024-12-06 09:38 | disposition home or self-care (01) ==
LOC: HO.HMCH 08:52
PROVIDERS: PCP Internal Medicine; Visit Provider Internal Medicine
DX: N40.0 Benign prostatic hyperplasia without lower urinary tract symptoms (principal); Z95.5 Presence of coronary angioplasty implant and graft; E78.00 Pure hypercholesterolemia, unspecified; K21.9 Gastro-esophageal reflux disease without esophagitis; D12.6 Benign neoplasm of colon, unspecified; W57.XXXA Bitten or stung by nonvenomous insect and other nonvenomous arthropods, initial encounter

== ENCOUNTER → 2024-12-06 08:51 | Outpatient (BNVA) | payer MEDICARE, SELFPAY | PROVIDERS: PCP Internal Medicine; Visit Provider Internal Medicine | DX: N40.0 Benign prostatic hyperplasia without lower urinary tract symptoms (principal); E78.00 Pure hypercholesterolemia, unspecified; K21.9 Gastro-esophageal reflux disease without esophagitis; D12.6 Benign neoplasm of colon, unspecified; Z95.5 Presence of coronary angioplasty implant and graft; T14.8XXD Other injury of unspecified body region, subsequent encounter; W57.XXXD Bitten or stung by nonvenomous insect and other nonvenomous arthropods, subsequent encounter | CPT/HCPCS: 99212 ==

== ENCOUNTER 2025-02-05 15:36 | Outpatient (AMB) | payer MEDICARE, SELFPAY ==
--- NOTE | 2025-02-05 15:54 | MHC.PC.OV ---
Vital Signs 02/05/25 15:55 Height 6 ft Weight 177 lb 2 oz BMI 24.0 BP 120/70 Blood Pressure Location Lt brachial Position Sitting Pulse 70 Pulse Source Pulse Oximeter Temp 97.1 F Temp Source Temporal Artery Scan Pulse Oximetry (%) 98 Oxygen Delivery Method Room Air Intake Visit Reasons: Swollen RT ring finger Intake Note: Patient is here to follow up on Swollen right finger. Manager Medical Required: No Panel Cutter: Not Required per policy Accompanied by: Self / Same As Patient Allergies Penicillins (PCN) Allergy (Severe, Verified 02/05/25 15:55) HIVES nutmeg oil (Myristica seed oil) Allergy (Intermediate, Verified 02/05/25 15:55) hives perfume Allergy (Mild, Verified 02/05/25 15:55) Headache barley Allergy (Intermediate, Uncoded 02/05/25 15:55) rash, hives food dyes Allergy (Intermediate, Uncoded 02/05/25 15:55) rash, blue dyes on meds, drinks Medication List - Last Reconciled 02/05/25 by Fernando Louie MD aspirin 81 mg PO DAILY atorvastatin 80 mg PO DAILY clotrimazole 1% 1 appl topical BID 4 weeks famotidine 20 mg PO BID 90 days fluticasone propionate 50 mcg/actuation 1 spray intranasal BID 30 days psyllium husk (Fiber (psyllium husk)) 0.52 grams PO BID PRN 60 days Tobacco use date assessed: 02/05/25 Dental Screening Dental Screen Date: 12/06/24 HPI HPI Comments History of Present Illness Details The patient is a 64-year-old male presenting with a swollen ring finger. The swelling began approximately 14 days ago without any known trauma or injury. The patient reports significant pain and inability to bend the finger, despite using ice and anti-inflammatory spices for relief. [facility] Medical History Bilateral inguinal hernia Spinal stenosis Migraines TMJ arthritis Chronically dry eyes Elevated cholesterol GERD (gastroesophageal reflux disease) Depression CAD (coronary artery disease) Traumatic brain injury Abdominal aneurysm, ruptured Spinal stenosis at L4-L5 level Broken back Surgical History H/O abdominal surgery H/O knee surgery History of esophagogastroduodenoscopy (EGD) Hx of colonoscopy Stented coronary artery Family History Sister Lung cancer Mother Blind Alcoholic Father No problems noted. Social History Housing: Apartment Alcohol intake: current Alcohol intake frequency: holidays/special occasions only Alcohol type: wine Patient Tobacco Use Status: Never used Tobacco e-Cigarette/Vaping Use: Never Used Second Hand Smoke Exposure: Yes service: Yes Current occupational status: retired Cognitive needs: No Hearing needs: No Vision needs: No Questionnaire Thrive Questionnaire Date Thrive assessed: 06/26/24 I am a: Patient What is your living situation today?: I have a steady place to live Within the past 12 months, did the food you bought not last and you didn't have the money to get more?: Sometimes True Within the past 12 months, did you worry whether your food would run out before you got money to buy more?: Sometimes True Do you have trouble paying for medicines?: No Do you have trouble getting transportation to medical appointments?: No Do you have trouble paying your heating and electricity bill?: No Do you have trouble taking care of your child, family member or friend?: No Do you have trouble with day-to-day activities such as bathing, preparing meals, shopping, managing finances, etc.?: No Are you currently unemployed and looking for a job?: No Are you interested in more education?: I choose not to answer this question Please select the resources that you would like help with: None Currently or been in a relationship where the following occur: No concerns reported THRIVE Score: 2 DOREEN-7 AMB Questionnaire DOREEN-7 Date DOREEN - 7 assessed: 06/26/24 Source: Developed by Drs. Olman Jama, Theresa Reyes, José Luis Cottrell and colleagues, with an educational ciro from [employer]. Review of Systems Const Details: Positives besides what was mentioned in HPI are in BOLD Constitutional: No Weight Change, No Fever, No Chills, No Night Sweats, No Fatigue, No Malaise ENT/Mouth: No Hearing Changes, No Ear Pain, No Nasal Congestion, No Sinus Pain, No Hoarseness, No sore throat, No Rhinorrhea, No Swallowing Difficulty Eyes: No Eye Pain, No Swelling, No Redness, No Foreign Body, No Discharge, No Vision Changes Cardiovascular: No Chest Pain, No SOB, No PND, No Dyspnea on Exertion, No Orthopnea, No Claudication, No Edema, No Palpitations Respiratory: No Cough, No Sputum, No Wheezing, No Smoke Exposure, No Dyspnea Gastrointestinal: No Nausea, No Vomiting, No Diarrhea, No Constipation, No Pain, No Heartburn, No Anorexia, No Dysphagia, No Hematochezia, No Melena, No Flatulence, No Jaundice Genitourinary: No Dysmenorrhea, No DUB, No Dyspareunia, No Dysuria, No Urinary Frequency, No Hematuria, No Urinary Incontinence, No Urgency, No Flank Pain, No Urinary Flow Changes, No Hesitancy Musculoskeletal: No Arthralgias, No Myalgias, No Joint Swelling, No Joint Stiffness, No Back Pain, No Neck Pain, No Injury History Skin: No Skin Lesions, No Pruritis, No Hair Changes, No Breast/Skin Changes, No Nipple Discharge Neuro: No Weakness, No Numbness, No Paresthesias, No Loss of Consciousness, No Syncope, No Dizziness, No Headache, No Coordination Changes, No Recent Falls Psych: No Anxiety/Panic, No Depression, No Insomnia, No Personality Changes, No Delusions, No Rumination, No SI/HI/AH/VH, No Social Issues, No Memory Changes, No Violence/Abuse Hx., No Eating Concerns Heme/Lymph: No Bruising, No Bleeding, No Transfusions History, No Lymphadenopathy Endocrine: No Polyuria, No Polydipsia, No Temperature Intolerance Physical exam (Primary Care) Vital Signs: Last Vital Signs Temp 97.1 F 02/05/25 15:55 Pulse 70 02/05/25 15:55 BP 120/70 02/05/25 15:55 Pulse Ox 98 02/05/25 15:55 Oxygen Delivery Method Room Air 02/05/25 15:55 BMI result Body Mass Index 24.0 Tobacco/Smoking Status: Tobacco use Status Tobacco use date assessed 02/05/25 02/05/25 16:04 Patient Tobacco Use Status Never used Tobacco 02/05/25 16:04 e-Cigarette/Vaping Use Never Used 02/05/25 16:04 Thrive Assessment: Date of Thrive Assessment Date Thrive assessed 06/26/24 02/05/25 16:04 Currently or been in a relationship where the following occur: No concerns reported Const Other: Pertinent findings are in BOLD GENERAL APPEARANCE NAD, activity normal for age, well developed/ well nourished, no cyanosis, pallor, or diaphoresis. EYES lids/conjunctiva normal. EARS/NOSE/THROAT Mucous membranes moist, nares normal, lips/teeth normal uvula midline without oral pharyngeal erythema, exudate or swelling TMs normal bilaterally. No lymphangitis/lymphedema. HEAD/NECK normocephalic atraumatic, no facial trauma, neck is supple. RESPIRATORY respiratory effort normal, speaks in full sentences, no tripod position, no accessory muscle use. Lungs clear to auscultation without rhonchi, wheezes, rales CARDIAC Regular rate and rhythm, no edema. ABDOMINAL Soft, ND/NT. No evidence of fluid wave. No pulsatile masses on exam, rebound tenderness, Noe sign or pain over Mcburney's point. MUSCLES/EXTREMITIES left side ring finger with mild swelling. SKIN Warm, pink and dry. No rashes, dermatoses, petechiae or lesions. NEUROLOGICAL Speech is clear and appropriate. Normal level of consciousness. Gait and coordination are normal. 5/5 strength in all extremities. PSYCH Normal mood and affect. Judgement/competence is appropriate Coding Level of Care Code Est Pt Level 4 (08660) Diagnoses Arthritis M19.90 GERD (gastroesophageal reflux disease) K21.9 Time Spent (min) 30 Assessment & Plan Assessment & Plan (1) Arthritis: Code(s): M19.90 - Unspecified osteoarthritis, unspecified site Category: Medical Plan: Voltaren gel. Further evaluation in case symptoms do not improve with voltaren gel. (2) GERD (gastroesophageal reflux disease): Code(s): K21.9 - Gastro-esophageal reflux disease without esophagitis Category: Medical Plan: Continue pepcid. Advised dietary modifications including elimination of dairy, sugar, and red meat. Avoid the foods that causes that usually spicy foods, tomato products, juices, coffee, soda and foods that your sensitive to. After eating do not lie down, allow 3-4 hours before in lie down. And keep the head of bed above 30 degrees to avoid the acid from going up. Plan I discussed with the patient the management of his swollen ring finger, recommending the use of Voltaren gel for pain relief and monitoring the condition. We also talked about the importance of dietary changes to manage his gastroesophageal reflux disease, emphasizing the elimination of dairy, sugar, and red meat. The patient was advised to follow up with a urologist for his benign prostatic hyperplasia and with a recycling manager for his hemorrhoids. Medications: New diclofenac sodium 1% (Voltaren Arthritis Pain) apply to single elbow, wrist or hand; for hand includes palm/fingers/back of hand 2 grams topical QID 100 grams 0RF
[2025-02-05 15:55] VITALS: BP 120/70; PULSE 70; TEMP 36.2; O2SAT 98; BMI 24.0
--- OUTSIDE RECORDS SUMMARY | 2025-02-05 17:39 | XMS_ITS | Clinical Summary ---
Author Organization [facility] Address [address] [place] [id number] Phone Care Team Providers Care Port Captain Name Role Phone Unknown, Unknown Primary Care [...] 100 mg by mouth daily. Active omega 8-ffs-vcx-fish oil 1,000 mg (120 mg-180 mg) Cap [...] lipid rich plaque 11/09/2019 Overview (11/09/2019): H/o DE Depressive disorder 04/07/2010 Overview (06/30/2014): Depressive disorder [...] Booster 05/01/2018 05/01/2008 DEPRESSION SCREENING 05/22/2020 05/22/2019 INFLUENZA VACCINE (#1) 2024 7, 04/09/2008 COVID-19 VACCINE (3 - 2024-2 6 season) 2025 09/30/2020, 09/02/2020 RSV VACCINE (1 - 1-dose [...] topic Medical Devices Not on file Insurance [facility] B [facility] PART A & B [facility] MEDIC[facility] PART A & B [facility] MEDICARE PART A & B [facility] [place] [id number] MEDICARE PART A & B [facility] MEDICARE PART A & B [facility] MEDICARE PART A & B [facility]IC[facility] PART A & B [facility] B [facility] MEDICARE PART A & B [facility] Care Teams Port Captain Relationship Specialty Start Date End Date Unknown, Unknown, PCP - General 07/29/20 Additional Source Comments The information contained in this document represents components of the legal health record. It is not the complete legal health record.[facility]
== END 2025-02-05 16:24 | disposition home or self-care (01) ==
LOC: HO.HMCH 15:37
PROVIDERS: PCP Internal Medicine; Visit Provider Internal Medicine
DX: M19.90 Unspecified osteoarthritis, unspecified site (principal); K21.9 Gastro-esophageal reflux disease without esophagitis

== ENCOUNTER → 2025-02-05 15:36 | Outpatient (BNVA) | payer MEDICARE, SELFPAY | PROVIDERS: PCP Internal Medicine; Visit Provider Internal Medicine | DX: R22.32 Localized swelling, mass and lump, left upper limb (principal); K21.9 Gastro-esophageal reflux disease without esophagitis | CPT/HCPCS: 99212 ==

== ENCOUNTER 2025-02-12 08:52 | Outpatient (AMB) | payer MEDICARE, SELFPAY ==
--- NOTE | 2025-02-12 08:56 | MHC.OFFVIS ---
Intake Visit Reasons: /US Intake Note: Patient is present for / Urology Medication:NONE Antibiotic Allergy:PENICILLINS Blood Thinner:ASPIRIN Alterations Expert Required: No Allergies Penicillins (PCN) Allergy (Severe, Verified 02/12/25 09:49) HIVES nutmeg oil (Myristica seed oil) Allergy (Intermediate, Verified 02/12/25 09:49) hives perfume Allergy (Mild, Verified 02/12/25 09:49) Headache barley Allergy (Intermediate, Uncoded 02/12/25 09:49) rash, hives food dyes Allergy (Intermediate, Uncoded 02/12/25 09:49) rash, blue dyes on meds, drinks Medication List - Last Reconciled 02/12/25 by FABIOLA Calderon- aspirin 81 mg PO DAILY atorvastatin 80 mg PO DAILY clotrimazole 1% 1 appl topical BID 4 weeks diclofenac sodium 1% (Voltaren Arthritis Pain) 2 grams topical QID famotidine 20 mg PO BID 90 days fluticasone propionate 50 mcg/actuation 1 spray intranasal BID 30 days psyllium husk (Fiber (psyllium husk)) 0.52 grams PO BID PRN 60 days HPI Comments Details: Miguel Ángel is a 64-year-old male patient of Dr. Mann. He has a past medical history of TBI, abdominal aneurysm, and spinal stenosis. He presents to the office today for follow-up. Of note, patient was seen approximately 6 months ago as a new patient for low libido, ED, and urinary frequency at which time a retroperitoneal ultrasound was ordered for further assessment evaluation in discussion regarding urological concerns were reviewed. In discussion with the patient today he discusses feeling episodes of urinary frequency and nocturia have somewhat improved with avoiding bladder triggers and irritants. He feels lower urinary tract symptoms are manageable independently. Recent retroperitoneal ultrasound results were reviewed 12/01 bilateral kidneys with no renal calculi or hydronephrosis. 1.1 cm right peripelvic cyst is present. The urinary bladder is unremarkable. Postvoid residual volume 75 mL. The prostate is mildly enlarged measuring 41 mL. In office urinalysis results were reviewed with the patient today. We did discuss further treatment options of labile urinary symptoms as well as ED. We discussed risks and benefits of these treatment options. Patient would like to proceed with surveillance monitoring. Previous urological labs are as follows: Testosterone: 09/01 690 Free testosterone: 09/01 109.4 PSA: 09/01 1.0 He otherwise denies incontinence, hematuria, dysuria, foul smelling urine, changes to urinary stream, flank pain, fever, and or chills. He otherwise offers no other issues or concerns at this time. [facility] Medical History Bilateral inguinal hernia Spinal stenosis Migraines TMJ arthritis Chronically dry eyes Elevated cholesterol GERD (gastroesophageal reflux disease) Depression CAD (coronary artery disease) Traumatic brain injury Abdominal aneurysm, ruptured Spinal stenosis at L4-L5 level Broken back Surgical History H/O abdominal surgery H/O knee surgery History of esophagogastroduodenoscopy (EGD) Hx of colonoscopy Stented coronary artery Family History Sister Lung cancer Mother Blind Alcoholic Father No problems noted. Social History Housing: Apartment Alcohol intake: current Alcohol intake frequency: holidays/special occasions only Alcohol type: wine Patient Tobacco Use Status: Never used Tobacco e-Cigarette/Vaping Use: Never Used Second Hand Smoke Exposure: Yes service: Yes Current occupational status: retired Cognitive needs: No Hearing needs: No Vision needs: No Review of Systems Const All systems reviewed & are unremarkable except as noted in HPI and below Physical Exam Const General: cooperative, comfortable, no acute distress, well developed, alert and awake Orientation/consciousness: patient oriented x3 Limitations: no limitations HEENT Head: Yes normal to inspection, Yes normocephalic and Yes atraumatic Ears: hearing grossly normal bilaterally Eyes General: appearance normal, both eyes and all related structures Neck Neck: Yes normal visual inspection and Yes trachea midline Chest Chest palpation & inspection: normal inspection of the chest Resp Effort & Inspection: normal respiratory effort and able to speak in complete sentences Cardio Rate: regular rate GI Inspection: Yes normal to inspection General: Yes no CVA tenderness Back/Spine/Pelvis Back: no CVA tenderness Skin General skin exam: no rashes or lesions noted Neuro General: patient oriented x3 Extrem General: Yes normal to inspection Psych Appearance: grossly normal and well kempt Mental Status: mental status grossly normal Speech and movement: Normal speech and movement present and Clear speech present Affect: normal affect Attitude: cooperative Thought process: Flight of ideas present Insight: Fair insight present (Psych) Judgement: Fair judgement present (Psych) Results AMB Urinalysis, Automated UA Leukoctes 0 Mervat/uL Last Edit by VALERY Plunkett on 02/12/25 09:15 UA Nitrite Negative Last Edit by Surendra Reynaga [facility] on 02/12/25 09:15 UA Urobilinogen 0.2 mg/dL Last Edit by Surendra Reynaga [facility] on 02/12/25 09:15 UA Protein 0 mg/dL Last Edit by Surendra Reynaga [facility] on 02/12/25 09:15 UA pH 7.0 Last Edit by Surendra Reynaga [facility] on 02/12/25 09:15 UA Blood 0 Hi/uL Last Edit by Surendra Reynaga [facility] on 02/12/25 09:15 UA Specific [place] 1.010 Last Edit by Surendra Reynaga [facility] on 02/12/25 09:15 UA Ketone Negative Last Edit by Surendra Reynaga [facility] on 02/12/25 09:15 UA Bilirubin 0 mg/dL Last Edit by Surendra Reynaga [facility] on 02/12/25 09:15 UA Glucose 0 mg/dL Last Edit by Surendra Reynaga [facility] on 02/12/25 09:15 Results Reviewed Results Reviewed: Laboratory Last Values Urine pH (Auto) 7.0 02/12/25 09:14 Specific [place] (Auto) 1.010 02/12/25 09:14 Urine Protein (Auto) 0 mg/dL 02/12/25 09:14 Glucose (UA)(Auto) 0 mg/dL 02/12/25 09:14 Urine Ketones (Auto) Negative 02/12/25 09:14 Urine Blood (Auto) 0 Hi/uL 02/12/25 09:14 Urine Nitrite (Auto) Negative 02/12/25 09:14 Urine Bilirubin (Auto) 0 mg/dL 02/12/25 09:14 Urine Urobilinogen (Auto) 0.2 mg/dL 02/12/25 09:14 Leukocyte Esterase (Auto) 0 Mervat/uL 02/12/25 09:14 Date of Service: 11/09/24 Procedure(s): US retroperitoneal comp Findings: Right kidney normal size and echotexture, 11.8 cm length. 1.1 cm right parapelvic cyst is present. Left kidney normal size and echotexture, 12.9 cm length. No hydronephrosis of either kidney. Urinary bladder is unremarkable. Prevoid volume 370 mL. Postvoid volume 75 mL. Bilateral ureteral jets are visualized. Prostate measures 4.4 x 4.0 x 4.4 cm with a total volume of 40.7 mL. IMPRESSION: 1. 1.1 cm right parapelvic cyst. 2. Elevated postvoid residual of 75 mL. 3. Enlarged prostate gland with a total volume of 40.7 mL. Assessment & Plan Assessment & Plan (1) Erectile dysfunction: Code(s): N52.9 - Male erectile dysfunction, unspecified Category: Medical (2) Urinary frequency: Code(s): R35.0 - Frequency of micturition Category: Medical (3) Low libido: Code(s): R68.82 - Decreased libido Category: Medical Plan In office urinalysis results reviewed with the patient today; as noted above. Bladder diary was reviewed We discussed recent retroperitoneal ultrasound results. We also discussed mildly enlarged prostate as well as renal cyst. Patient reports lower urinary tract symptoms are manageable and would like to continue with surveillance monitoring. We discussed bladder triggers/irritants. We discussed importance of limiting fluids 2-3 hours prior to bed to decrease episodes of nocturia. Will obtain PSA in 6 months Follow-up in 6 months with PSA and PVR; or sooner with any issues, concerns, and or questions. Orders: Orders AMB Urinalysis Automated Today Z13.9 - Encounter for screening, unspecified Prostate Specific Antigen 6 Months N52.9 - Male erectile dysfunction, unspecified, R35.0 - Frequency of micturition, R68.82 - Decreased libido Patient Instructions: The patient had an opportunity to ask questions regarding the treatment plan. All questions were answered. Physical exam, labs, and imaging were discussed and reviewed in detail. As well as risks, benefits, and discussion of treatment choices. No major barriers to understanding were identified. The patient expressed understanding and agreement with the above treatment plan. The patient was made aware they should contact our office by phone for worsening of their current condition, the appearance of new symptoms, or with any questions or concerns. Compliance is encouraged with any medications and follow up testing that is ordered. It is a privilege to be allowed the opportunity to participate in? your urological care.? Again, if you have any questions or concerns If you have any questions or concerns please do not hesitate to contact me. The office is [phone]. This note is constructed using voice recognition software. While every effort has been made to ensure accuracy production shift supervisor errors may have been included. Yours sincerely, MO Calderon Coding Level of Care Code Est Pt Level 3 (11244) Complex EM visit Add On G2211 Diagnoses Erectile dysfunction N52.9 Urinary frequency R35.0 Low libido R68.82
--- OUTSIDE RECORDS SUMMARY | 2025-02-12 09:49 | XMS_ITS | Clinical Summary ---
Author Organization [facility] Address [address] [place] [id number] Phone Care Team Providers Care Salary Manager Name Role Phone Unknown, Unknown Primary Care [...] 100 mg by mouth daily. Active omega 8-sdw-rxs-fish oil 1,000 mg (120 mg-180 mg) Cap [...] lipid rich plaque 11/09/2019 Overview (11/09/2019): H/o ID Depressive disorder 04/07/2010 Overview (06/30/2014): Depressive disorder [...] file Insurance [facility] B [facility]IC[facility] PART A & B [facility] MEDICARE PART A & B [facility] MEDICARE PART A & B [facility] [place] [id number] MEDICARE PART A & B [facility] MEDICARE PART A & B [facility]ICARE PART A & B [facility]ICARE PART A & B [facility] A & [facility] MEDICARE PART A & B [facility] Care Teams Salary Manager Relationship Specialty Start Date End Date Unknown, Unknown, PCP - General 07/29/20 Additional Source Comments The information contained in this document represents components of the legal health record. It is not the complete legal health record.[facility]
== END 2025-02-12 09:45 | disposition home or self-care (01) ==
LOC: HO.HUSH 08:53
PROVIDERS: PCP Internal Medicine; Visit Provider Nurse Practitioner Family
DX: N52.9 Male erectile dysfunction, unspecified (principal); R35.0 Frequency of micturition; R68.82 Decreased libido; Z13.9 Encounter for screening, unspecified
CPT/HCPCS: 99213; G2211

== ENCOUNTER → 2025-02-12 08:52 | Outpatient (BNVA) | payer MEDICARE, SELFPAY | PROVIDERS: PCP Internal Medicine; Visit Provider Nurse Practitioner Family | DX: R68.82 Decreased libido (principal); R35.0 Frequency of micturition; N52.9 Male erectile dysfunction, unspecified | CPT/HCPCS: 81003; 99212 ==

== ENCOUNTER → 2025-02-23 09:02 | Outpatient (REF) | payer MEDICARE, SELFPAY ==
--- NOTE | 2025-02-23 09:07 | ECG_ITS ---
Test Reason : Z95.5 - Presence of coronary angioplasty implant and graft Blood Pressure : */* mmHG Vent. Rate : 54 BPM Atrial Rate : 54 BPM P-R Int : 150 ms QRS Dur : 110 ms QT Int : 434 ms P-R-T Axes : * 163 144 degrees QTcB Int : 411 ms Sinus bradycardia Left posterior fascicular block Nonspecific ST abnormality Abnormal ECG No previous ECGs available Referred By: Claudia Carpenter Electronically Signed By: Kilo Snow
== END ==
LOC: HO.CARD 09:02
PROVIDERS: PCP Internal Medicine; Visit Provider Internal Medicine
DX: Z95.5 Presence of coronary angioplasty implant and graft (principal)
CPT/HCPCS: 93005

== ENCOUNTER → 2025-02-23 09:07 | Outpatient (BNV) | payer MEDICARE, SELFPAY | PROVIDERS: PCP Internal Medicine; Visit Provider Internal Medicine Cardiovascular Disease | DX: R00.1 Bradycardia, unspecified (principal); I44.5 Left posterior fascicular block | CPT/HCPCS: 93010 ==

== ENCOUNTER 2025-03-13 14:34 | Outpatient (AMB) | payer MEDICARE, SELFPAY ==
--- NOTE | 2025-03-13 14:35 | A.OFFVIS_ITS ---
VS Expanded 03/13/25 14:37 Height 6 ft Weight 186 lb 4.65 oz BMI 25.3 Intake Visit Reasons: hyperlipidemia Allergies Penicillins (PCN) Allergy (Severe, Verified 02/12/25 09:49) HIVES nutmeg oil (Myristica seed oil) Allergy (Intermediate, Verified 02/12/25 09:49) hives perfume Allergy (Mild, Verified 02/12/25 09:49) Headache barley Allergy (Intermediate, Uncoded 02/12/25 09:49) rash, hives food dyes Allergy (Intermediate, Uncoded 02/12/25 09:49) rash, blue dyes on meds, drinks Nutrition Presentation Details: Pt presents for MNT for hyperlipidemia Pt reports working on choosing high fiber foods Pt report working on choosing lower fat foods/less fried foods and less of a empty calorie snacks Pt reports participating in food pantries. [facility] Medical History Bilateral inguinal hernia Spinal stenosis Migraines TMJ arthritis Chronically dry eyes Elevated cholesterol GERD (gastroesophageal reflux disease) Depression CAD (coronary artery disease) Traumatic brain injury Abdominal aneurysm, ruptured Spinal stenosis at L4-L5 level Broken back Surgical History H/O abdominal surgery H/O knee surgery History of esophagogastroduodenoscopy (EGD) Hx of colonoscopy Stented coronary artery Family History Sister Lung cancer Mother Blind Alcoholic Father No problems noted. Social History Housing: Apartment Alcohol intake: current Alcohol intake frequency: holidays/special occasions only Alcohol type: wine Patient Tobacco Use Status: Never used Tobacco e-Cigarette/Vaping Use: Never Used Second Hand Smoke Exposure: Yes service: Yes Current occupational status: retired Cognitive needs: No Hearing needs: No Vision needs: No Assessment & Plan Assessment & Plan (1) Pure hypercholesterolemia: Code(s): E78.00 - Pure hypercholesterolemia, unspecified Category: Medical Plan: [id number] ( 04/02 ),06/03, 85 kg (10/01) Est kcal needs as per MSJ: 2700 (40% carb, 30% protein/fat) Est fluid needs as per 25-30 ml/d:2800 Est prot per day as per 1 g/kg bw: 92 Recommend fiber intake : 8-10 g per day and gradually increase to 25-28 g per day for women and 35-38 g for men or as tolerated Recommend sodium intake per day : less than 1500 mg less than 2000 mg Educated patient on: ( R = reviewed V = verbalizes understanding N/R = needs review N/A = not applicable * Food sources of carbohydrate, adequate serving sizes and its role in various health conditions: R * Differences between complex carbohydrates a simple carbohydrates, role of fiber in diet: R * Lean protein sources of foods: R * Differences between types of fats and role in diet (mono on saturated fat fatty acids, saturated fatty acids, trans fats): R * Food sources of sodium in salt and healthy modifications for heart health in kidney health: R V R/V * Vitamins and minerals: R * Healthy plate method concept: R * Physical activity: Benefits a precaution: R * Mobile food pantry schedule: Provided Patient Instructions: Continue working on choosing fiber rich foods (lentils, legumes, fruits, non starchy vegetables) continue working on choosing low saturated fats Drink water , low-fat milk Coding Level of Care Code Nutr Indiv Subseq (76396) Diagnoses Pure hypercholesterolemia E78.00 Time Spent (min) 30
[2025-03-13 14:37] VITALS: BMI 25.3
--- OUTSIDE RECORDS SUMMARY | 2025-03-13 17:36 | XMS_ITS | Clinical Summary ---
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 Active omega 5-frx-rjy-fish oil 1,000 mg (120 mg-180 mg) Cap [...] lipid rich plaque 11/09/2019 Overview (11/09/2019): H/o NC Depressive disorder 04/07/2010 Overview (06/30/2014): Depressive disorder [...] topic Medical Devices Not on file Insurance [facility] B [facility]IC[facility] PART A & B [facility] MEDIC[facility] PART A & B [facility] MEDICARE PART A & B [facility] [place] [place] [id number] MEDICARE PART A & B [facility] MEDICARE PART A & B [facility] MEDICARE PART A & B [facility] MEDIC[facility] PART A & B [facility] PART A & B [facility] B [facility] MEDICARE PART A & B [facility] Care Teams Head Banquet Waiter/Waitress Relationship Specialty Start Date End Date Unknown, Unknown, PCP - General 07/29/20 Additional Source Comments The information contained in this document represents components of the legal health record. It is not the complete legal health record.[facility]
== END 2025-03-13 15:22 | disposition home or self-care (01) ==
LOC: HO.ENCR 14:35
PROVIDERS: PCP Internal Medicine; Visit Provider Dietitian, Registered
DX: E78.00 Pure hypercholesterolemia, unspecified (principal)

== ENCOUNTER → 2025-03-13 14:34 | Outpatient (BNVA) | payer MEDICARE, SELFPAY | PROVIDERS: PCP Internal Medicine; Visit Provider Dietitian, Registered | DX: Z71.3 Dietary counseling and surveillance (principal); E78.00 Pure hypercholesterolemia, unspecified | CPT/HCPCS: 97803 ==

== ENCOUNTER 2025-05-01 08:01 | Outpatient (AMB) | payer MEDICARE, SELFPAY ==
--- NOTE | 2025-05-01 08:03 | A.OFFPC_ITS ---
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: No Accompanied by: Self / Same As Patient Allergies Penicillins (PCN) Allergy (Severe, Verified 05/01/25 08:13) HIVES nutmeg oil (Myristica seed oil) Allergy (Intermediate, Verified 05/01/25 08:13) hives perfume Allergy (Mild, Verified 05/01/25 08:13) Headache barley Allergy (Intermediate, Uncoded 05/01/25 08:13) rash, hives food dyes Allergy (Intermediate, Uncoded 05/01/25 08:13) rash, blue dyes on meds, drinks Medication List - Last Reconciled 05/01/25 by Claudai Carpenter MD aspirin 81 mg PO DAILY atorvastatin 80 mg PO DAILY clotrimazole 1% 1 appl topical BID 4 weeks diclofenac sodium 1% (Voltaren Arthritis Pain) 2 grams topical QID famotidine 20 mg PO BID 90 days fluticasone propionate 50 mcg/actuation 1 spray intranasal BID 30 days psyllium husk (Fiber (psyllium husk)) 0.52 grams PO BID PRN 60 days Tobacco use date assessed: 02/05/25 Dental Screening Dental Screen Date: 12/06/24 HPI HPI Comments History of Present Illness Details This is a 64-year-old male that comes today complaining of right rib pain and chest wall pain when taking deep breaths that started yesterday after he was doing some lifting exercises. He denies any rash in the area. Feels like a sharp pain. I will order an x-ray. Declines flu vaccine today. [facility], [facility] Medical History Bilateral inguinal hernia Spinal stenosis Migraines TMJ arthritis Chronically dry eyes Elevated cholesterol GERD (gastroesophageal reflux disease) Depression CAD (coronary artery disease) Traumatic brain injury Abdominal aneurysm, ruptured Spinal stenosis at L4-L5 level Broken back Surgical History H/O abdominal surgery H/O knee surgery History of esophagogastroduodenoscopy (EGD) Hx of colonoscopy Stented coronary artery Family History Sister Lung cancer Mother Blind Alcoholic Father No problems noted. Social History Housing: Apartment Alcohol intake: current Alcohol intake frequency: holidays/special occasions only Alcohol type: wine Patient Tobacco Use Status: Never used Tobacco e-Cigarette/Vaping Use: Never Used Second Hand Smoke Exposure: Yes service: Yes Current occupational status: retired Cognitive needs: No Hearing needs: No Vision needs: No Questionnaire Thrive Questionnaire Date Thrive assessed: 06/26/24 I am a: Patient What is your living situation today?: I have a steady place to live Within the past 12 months, did the food you bought not last and you didn't have the money to get more?: Sometimes True Within the past 12 months, did you worry whether your food would run out before you got money to buy more?: Sometimes True Do you have trouble paying for medicines?: No Do you have trouble getting transportation to medical appointments?: No Do you have trouble paying your heating and electricity bill?: No Do you have trouble taking care of your child, family member or friend?: No Do you have trouble with day-to-day activities such as bathing, preparing meals, shopping, managing finances, etc.?: No Are you currently unemployed and looking for a job?: No Are you interested in more education?: I choose not to answer this question Currently or been in a relationship where the following occur: No concerns reported THRIVE Score: 2 DOREEN-7 AMB Questionnaire DOREEN-7 Date DOREEN - 7 assessed: 06/26/24 Source: Developed by Drs. Olman Jama, Theresa Reyes, José Luis Cottrell and colleagues, with an educational ciro from [employer]. Review of Systems Const All systems reviewed & are unremarkable except as noted in HPI and below Card Denies chest pain at rest, Denies chest pain with activity, Denies edema, Denies irregular heart rhythm, Denies claudication, Denies dyspnea, Denies dyspnea on exertion, Denies orthopnea, Denies paroxysmal nocturnal dyspnea and Denies slow heart rate Resp Denies cough, Denies dyspnea and Denies dyspnea on exertion Physical exam (Primary Care) Vital Signs: Last Vital Signs Temp 97.8 F 05/01/25 08:05 Pulse 64 05/01/25 08:05 Resp 18 05/01/25 08:05 BP 124/72 05/01/25 08:05 Pulse Ox 96 05/01/25 08:05 Oxygen Delivery Method Room Air 05/01/25 08:05 BMI result Body Mass Index 23.7 Tobacco/Smoking Status: Tobacco use Status Tobacco use date assessed 02/05/25 05/01/25 08:09 Patient Tobacco Use Status Never used Tobacco 05/01/25 08:09 e-Cigarette/Vaping Use Never Used 05/01/25 08:09 Thrive Assessment: Date of Thrive Assessment Date Thrive assessed 06/26/24 05/01/25 08:09 Currently or been in a relationship where the following occur: No concerns reported Resp Effort & Inspection: normal respiratory effort Auscultation: clear to auscultation bilaterally Cardio Jugular venous distension: no JVD Rate: regular rate Rhythm: regular rhythm Heart sounds: S1 normal heart sound present and S2 normal heart sound present Extrem General: Yes full ROM Immunizations Tenivac (PF) 5 Lf unit-2 Lf unit/0.5 mL intramuscular syringe Performing Provider: Claudia Carpenter MD [facility] Administered by: Livia Grayson RN on 05/01/25 08:37 Dose Route Admin Location Dispensed Lot Number Expiration Date [facility] Vp Platforms 0.5 mL IM Left Deltoid 0.5 mL [id number] 08/06/26 27475-625-15 [employer] Total Dispensed Waste 0.5 mL 0 % VIS Given Date VIS Provided VIS Publication Date 05/01/25 Single Vaccine 20 Eligibility Eligibility Date Funding Source Not [facility] Eligible 05/01/25 Private Coding Level of Care Code Est Pt Level 3 (86015) Diagnoses Rib pain on right side R07.89 Time Spent (min) 19 Assessment & Plan Assessment & Plan (1) Rib pain on right side: Code(s): R07.89 - Other chest pain Category: Medical Plan X-ray ordered. Orders: Orders XR chest 2V Today R07.9 - Chest pain, unspecified XR ribs RT 2V Today R07.89 - Other chest pain Td Immunization Today Z23 - Encounter for immunization
[2025-05-01 08:05] VITALS: BP 124/72; PULSE 64; RESP 18; TEMP 36.6; O2SAT 96; BMI 23.7
--- OUTSIDE RECORDS SUMMARY | 2025-05-01 08:05 | XMS_ITS | Clinical Summary ---
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 Do not use for more than 3-4 days in a row. 30 packet 2 03/16/2018 Active atorvaSTATin (LIPITOR) 80 MG tablet TAKE 1 TABLET BY MOUTH EVERY DAY 90 tablet 4 10/04/2018 Active Immunizations Immunization Administration Dates Next Due Influenza Vaccine - STANDARD - PF (FLUZONE/FLUARIX/FLULAVAL/AFLURIA) 03/16/2017 Pneumococcal polysaccharide vaccine 23-valent (PPSV23/[id number]) 01/23/2015 Tdap Vaccine (BOOSTRIX/ADACEL) 07/14/2016 Social History Tobacco Use Types Packs/Day Years Used Date Smoking Tobacco: Never Assessed Sex and Gender Information Value Date Recorded Sex Assigned at Not on file Legal Sex Male 2:43 AM EST Gender Identity Not on file Sexual Orientation Not on file Last Filed Vital Signs Vital Sign Reading Time Taken Comments Blood Pressure - - Pulse - - Temperature - - Respiratory Rate - - Oxygen Saturation - - Inhaled Oxygen Concentration - - Weight 90.2 kg (198 lb 12.8 oz) 01/13/2018 12:00 AM EDT Legacy value: 198.8 Height 175.3 cm (5' 9 ) 10/13/2016 12:0 0 AM EDT Legacy value: 69; Method: With Shoes Body Mass Index 29.36 10/13/2016 12:00 AM EDT Plan of Treatment Not on file
--- OUTSIDE RECORDS SUMMARY | 2025-05-01 08:05 | XMS_ITS | Clinical Summary ---
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 Active omega 4-vpk-bmf-fish oil 1,000 mg (120 mg-180 mg) Cap [...] topic Medical Devices Not on file Insurance [facility] & B [facility] PART A & B [facility]IC[facility] PART A & B [facility]IC[facility] PART A & B [facility] [place] [id number] MEDICARE PART A & B [facility]ICARE PART A & B [facility]IC[facility] PART A & B [facility] PART A & B [facility] PART [facility] A & B [facility] MEDICARE PART A & B [facility] Care Teams Fountain Waitress/Waiter Relationship Specialty Start Date End Date Unknown, Unknown, PCP - General 07/29/20 Additional Source Comments The information contained in this document represents components of the legal health record. It is not the complete legal health record.[facility]
== END 2025-05-01 08:35 | disposition home or self-care (01) ==
LOC: HO.HMCH 08:02
PROVIDERS: PCP Internal Medicine; Visit Provider Internal Medicine
DX: Z23 Encounter for immunization (principal); R07.89 Other chest pain

== ENCOUNTER → 2025-05-01 09:09 | Outpatient (BNV) | payer MEDICARE, SELFPAY | PROVIDERS: PCP Internal Medicine; Visit Provider Radiology Diagnostic Radiology | DX: R07.89 Other chest pain (principal); R07.9 Chest pain, unspecified | CPT/HCPCS: 71045; 71101 ==